=== PATIENT | male | born 1955 | race Hispanic/Latino ===

== ENCOUNTER 2018-05-18 13:56 | Inpatient (IN) | payer SELFPAY ==
[2018-05-18 15:09] LABS: #Basophils 0.1 thou/uL (0.0-0.2); #Eosinphils 0.4 thou/uL (0.0-0.7); #Lymphocytes 1.2 thou/uL (1.20-3.40); #Monocytes 0.6 thou/uL (0.11-0.59); #Neutrophils 5.4 thou/uL (1.40-6.50); %Basophils 0.9 % (0.0-1.0); %Eosinophils 5.8 % (0.0-10.0); %Lymphocytes 15.3 % (21.0-51.0); %Monocytes 7.5 % (0.0-10.0); %Neutrophils 70.4 % (42.0-75.0); Hemoglobin 11.8 g/dL (14.0-18.0); Mean Corpuscular HGB CONC 32.9 g/dL (32.0-36.0); Mean Corpuscular Hemoglobin 31.4 pg (27.0-31.0); Mean Corpuscular Volume 95.4 fL (78.0-98.0); Mean Platelet Volume 8.1 fL (7.4-10.4); Platelet Count 255 thou/uL (130-400); RBC Distribution Width 11.9 % (11.5-14.5); Red Blood Cell (RBC) Count 3.76 mill/uL (4.70-6.10); White Blood Cell (WBC) Count 7.6 thou/uL (4.8-10.8)
[2018-05-18 15:31] LABS: ALT (SGPT) 7 U/L (8-55); AST (SGOT) 7 U/L (5-34); Alkaline Phosphatase 131 U/L (40-150); Anion Gap 19 mmol/L (10-20); BUN (Urea Nitrogen) 81 mg/dL (8.4-25.7); Bilirubin, Total 0.6 mg/dL (0.2-1.2); Calc. Creatinine Clearance 0 mL/min (70-130); Calcium 8.6 mg/dL (7.8-10.44); Carbon Dioxide 17 mmol/L (23-31); Chloride 109 mmol/L (98-107); Estimated GFR-MDRD 5; Globulin 3.8 g/dL (2.4-3.5); Glucose 101 mg/dL (80-115); Potassium 5.4 mmol/L (3.5-5.1); Protein, Total 7.8 g/dL (5.8-8.1); Sodium 140 mmol/L (136-145)
--- NOTE | 2018-05-18 18:46 | RAD ---
AP VIEW CHEST: 05/18/18 HISTORY: Respiratory distress. Chest pain. AP view chest is obtained on 05/18/18. AP view chest demonstrates cardiomegaly seen. Pulmonary vascular congestion is seen. A small left jimmy ed pleural effusion is seen. No evidence of pneumothorax seen. IMPRESSION: Cardiomegaly and small left sided pleural effusion. POS: [facility]
--- NOTE | 2018-05-19 01:06 | HP ---
CHIEF COMPLAINT: Patient known to have end-stage renal disease in need of dialysis, visiting from [place]. HISTORY OF PRESENT ILLNESS AND REVIEW OF SYSTEMS: Mr. Power is a pleasant 62-year-old Turkmen-speaking male who is visiting here from [place]. The patient states he was diagnosed with end-stage renal disease requiring dialysis while living in [place]. He is a [place] who worked here for many years. However, had a work related injury in his right foot, and due to diabetes, had poor healing of the small toe requiring amputation. Due to the amputation, he was no longer able to continue working and decided to return to [place]. The patient states he still is an active [place] resident and is now returning to the [place] as his health has deteriorated further with the end-stage renal disease and need for hemodialysis. The patient is seeking to retire here in the [facility] and seeking to establish care. He feels well and is without any major complaints. He does report mild abdominal distention but denies having any pain. He states he usually has dialysis twice a week and last had it on Sunday, May 13, 2018. He has not had any recent fevers, chills, or sweats. Reports having a normal appetite. Denies any nausea or vomiting. Has not had any changes with his stools. Denies any urinary symptoms. Denies having any chest pain, palpitations, or shortness of breath. No headaches or dizziness. All other review of systems is negative. PAST MEDICAL HISTORY: 1. Diabetes. 2. Hypertension. 3. End-stage renal disease. PAST SURGICAL HISTORY: 1. Port in right neck. 2. Amputation of right fifth toe. SOCIAL HISTORY: Denies any tobacco use, alcohol use, or illicit drug use. Currently staying with family here in [place], [place]. Fully independent and mobilizes without any difficulties. ALLERGIES: NO KNOWN DRUG ALLERGIES. CURRENT MEDICATIONS: 1. Amlodipine 5 mg p.o. b.i.d. 2. Hydralazine 25 mg p.o. daily. PHYSICAL EXAMINATION: GENERAL: Patient is well developed, well nourished, in no acute distress. VITAL SIGNS: Temperature 98.3, pulse 76, respirations 20, O2 sat 97% on room air, and blood pressure 188/93. HEENT: Normocephalic and atraumatic. Pupils are equal, round, and reactive to light. Sclerae are without icterus. Oropharynx is clear. NECK: Supple without lymphadenopathy. LUNGS: Clear to auscultation bilaterally, without wheezes, rales, or rhonchi. CARDIOVASCULAR: Regular rate and rhythm, without audible murmurs, rubs, or gallops. ABDOMEN: Soft, nontender. No tense distention. Normoactive bowel sounds present. No guarding or rigidity. EXTREMITIES: No clubbing, cyanosis, or edema. NEUROLOGIC: Alert and oriented x3. SKIN: Without rash or jaundice. LABORATORY DATA: White blood count 7.6, hemoglobin 11.8, hematocrit 35.8, and platelets 255. Sodium 140, potassium 5.4, chloride 109, BUN 81, creatinine 10.36, eGFR 5, glucose 166, calcium 8.6. Total bilirubin 0.6, AST 7, ALT 7, alkaline phosphatase 131, serum total protein 7.8, albumin 4.0, and globulin . IMAGING DATA: Chest x-ray done May 18, 2018. Cardiomegaly and small left-sided pleural effusion. IMPRESSION AND PLAN: Mr. Power is being admitted for medical management of the following. 1. End-stage renal disease. Patient scheduled by Dr. Valdez for dialysis tomorrow morning. He will need to establish care as an outpatient and it appears Case Management has been consulted. We will update status with regard to him being a [place] resident rather than a non-documented immigrant. 2. Hypertension. Resume home medications. Monitor blood pressure. 3. Diabetes. Patient states he does not take any medications for this and it is managed with insulin given at the time of his dialysis. Monitor glucose. 4. Gastrointestinal prophylaxis. 5. Venous thromboembolism prophylaxis with mechanical SCDs. Patient's case to be discussed with Dr. Lieberman for further recommendations. Job ID: [id number]
--- NOTE | 2018-05-19 02:10 | CON ---
DATE OF CONSULTATION: 05/18/2018 HISTORY OF PRESENT ILLNESS: Mr. Power is a 62-year-old male who was initiated dialysis in [place] 7 months ago. He reported in today here since he has not had dialysis for the last several days. Due to his insurance status, he could not avail of an outpatient dialysis. We are being consulted for his maintenance hemodialysis. I evaluated the patient. I feel that we can wait until tomorrow for his next dialysis session. His potassium is acceptable and the patient was not in volume overload. REVIEW OF SYSTEMS: No chest pain or shortness of breath. No nausea. No vomiting. No diarrhea. No constipation. No productive cough. No fever or chills. No diarrhea. No syncopal episode. No fever or chills. Appetite and energy level, fair. No joint pain. No hematochezia. No melena. No hematemesis. MEDICATIONS: 1. Amlodipine 10 mg tablet once a day. 2. Hydralazine 25 mg tablet b.i.d. PAST MEDICAL HISTORY: Type 2 diabetes mellitus, ESRD from diabetic nephropathy, and hypertension. PAST SURGICAL HISTORY: Status post right foot surgery. SOCIAL HISTORY: The patient is , had 7 children, lives in the [place] area. He used to work in [employer]. Currently, no smoking, no alcohol intake. Denies any blood transfusion. No other drug abuse. Education, primary grade. FAMILY HISTORY: Positive family history of type 2 diabetes mellitus. No ESRD. ALLERGIES: NONE. TRAUMA: None. IMMUNIZATION: Up-to-date. HOSPITALIZATIONS: Please see past medical history. PHYSICAL EXAMINATION: VITAL SIGNS: Blood pressure 180/94, heart rate 70. GENERAL: Awake, alert, comfortable, not in overt distress. SKIN: Adequate turgor. HEENT: He has pinkish conjunctivae. Anicteric sclerae. No neck mass. No carotid bruits. No JVD. CHEST: No deformities. He has a right IJ dialysis catheter. LUNGS: Clear breath sounds. HEART: Normal sinus rhythm. No murmurs, gallops, or rubs. ABDOMEN: Globular, soft, nontender. No masses. EXTREMITIES: No edema, status post toe amputation right foot. LABORATORY DATA: On 05/18/2018; sodium 140, potassium 5.4, chloride 109, carbon dioxide 17, BUN 81, creatinine 10.36, and calcium 8.6. AST 7, ALT 7. Albumin 4. White count 7.6, hemoglobin 11.8, and hematocrit 35.8. Chest x-ray shows increased lung markings with a small left-sided pleural effusion. ASSESSMENT AND PLAN: 1. End-stage renal disease from diabetic nephropathy - we will schedule for hemodialysis in a.m. We will do a 4-hour hemodialysis and place him on a 3 times a week dialysis schedule. We will also consult briefcase sewer for outpatient dialysis placement. 2. Hypertension. Continue current BP medications. We will be rechecking phosphorus and intact PTH with this patient tomorrow. Overall, I agree with current management. Job ID: [id number]
[2018-05-19 05:25] LABS: #Basophils 0.1 thou/uL (0.0-0.2); #Eosinphils 0.4 thou/uL (0.0-0.7); #Lymphocytes 1.1 thou/uL (1.20-3.40); #Monocytes 0.7 thou/uL (0.11-0.59); #Neutrophils 6.5 thou/uL (1.40-6.50); %Basophils 0.8 % (0.0-1.0); %Lymphocytes 12.2 % (21.0-51.0); %Monocytes 7.8 % (0.0-10.0); %Neutrophils 74.3 % (42.0-75.0); Hemoglobin 11.5 g/dL (14.0-18.0); Mean Corpuscular HGB CONC 33.5 g/dL (32.0-36.0); Mean Corpuscular Hemoglobin 31.8 pg (27.0-31.0); Mean Corpuscular Volume 94.9 fL (78.0-98.0); Mean Platelet Volume 8.3 fL (7.4-10.4); Platelet Count 232 thou/uL (130-400); RBC Distribution Width 11.9 % (11.5-14.5); Red Blood Cell (RBC) Count 3.61 mill/uL (4.70-6.10); White Blood Cell (WBC) Count 8.7 thou/uL (4.8-10.8)
[2018-05-19 05:45] LABS: Anion Gap 22 mmol/L (10-20); BUN (Urea Nitrogen) 85 mg/dL (8.4-25.7); Calc. Creatinine Clearance 8 mL/min (70-130); Calcium 8.4 mg/dL (7.8-10.44); Carbon Dioxide 15 mmol/L (23-31); Chloride 109 mmol/L (98-107); Estimated GFR-MDRD 5; Glucose 80 mg/dL (80-115); Phosphorus 7.8 mg/dL (2.3-4.7); Potassium 5.5 mmol/L (3.5-5.1); Sodium 140 mmol/L (136-145)
[2018-05-19 06:03] LABS: HBSAB Concentration 0.44 mIU/mL; HBSAg Index 0.21 S/CO (0-0.99); Hep B Core Total Ab Non-Reactive (NonReactive); Hep B Core Total Index 0.11 S/CO (0-0.79); Hep B Surf AB Non-Reactive (NonReactive); Hep B Surf Ag Non-Reactive S/CO (NonReactive); Hep C IgG Ab Non-Reactive (NonReactive); Hep C Index 0.07 S/CO (0-0.79)
[2018-05-19] MEDS ORDERED: Ondansetron PF 4 MG/2 ML Vial IVP PRN (07:36)
[2018-05-19] MEDS ORDERED: Dextrose 5% in Water 1,000 ML IV PRN (07:36)
[2018-05-19] MEDS ORDERED: Acetaminophen 325 MG TAB PO PRN (07:36)
[2018-05-19] MEDS ORDERED: Calcium Carbonate 500 MG ChewTAB PO PRN (07:36)
[2018-05-19] MEDS ORDERED: Senokot S 8.6-50 MG TAB PO PRN (07:36)
[2018-05-19] MEDS ORDERED: Dextrose 50% Abboject 50 ML SYRINGE SLOW IVP PRN (07:36)
[2018-05-19] MEDS ORDERED: Insulin Regular 300 UNITS/3 ML VIAL SC PRN ×2 (07:36)
[2018-05-19] MEDS ORDERED: Ondansetron ODT 4 MG TAB PO PRN (07:36)
[2018-05-19 08:21] LABS: Hemoglobin A1c 5.3 % (4.0-6.0)
--- NOTE | 2018-05-19 08:47 | PRG ---
DATE OF SERVICE: 05/19/2018 SUBJECTIVE: Mr. Jannet Hebert is a 62-year-old male with ESRD from presumed diabetic nephropathy and was admitted for initiation of his dialysis. He has been receiving dialysis at [place]. He came back to this country and would like to establish dialysis treatment and the patient is scheduled for hemodialysis today. I have scheduled him for 3-1/2 hours. No new complaints. No chest pain or shortness of breath. OBJECTIVE: VITAL SIGNS: Blood pressure is 176/93, heart rate 75, respiratory rate 19, temperature 99.5, and pulse ox 93%. GENERAL: Noted to be awake, alert, supine, comfortable, not in distress. SKIN: Adequate turgor. HEENT: He has pinkish conjunctivae. Anicteric sclerae. NECK: No neck mass. No carotid bruits. No JVD. CHEST: No deformities. LUNGS: Clear breath sounds. HEART: Normal sinus rhythm. No murmur. No gallops. No rubs. ABDOMEN: Globular, soft, nontender. No masses. EXTREMITIES: No edema. No deformities. MEDICATIONS: Medications of May 19, 2018, was reviewed. LABORATORY DATA: laboratories of May 19, 2018, sodium 140, potassium 5.5, chloride 109, carbon dioxide 15, BUN 85, creatinine 10.41, and phosphorus 7.8. PTH 455.8. ASSESSMENT AND PLAN: 1. End-stage renal disease - we will resume hemodialysis. I will schedule him for 3-1/2 hours on Wednesday, , and Wednesday. Fluid removal as tolerated by the patient. 2. Hypertension. We will resume back his BP medications. Start hydralazine 25 mg tablet t.i.d. and amlodipine 10 mg tablet once a day. 3. Hyperphosphatemia. Renvela 800 mg one tablet t.i.d. with meals. 4. Secondary hyperparathyroidism, calcitriol 0.25 mcg tab daily. Awaiting dialysis placement. Job ID: [id number]
[2018-05-19] MEDS: Sodium Bicarbonate Tab 325 MG TAB PO SCH ×3 (09:55→21:25)
[2018-05-19] MEDS: Calcitriol 0.25 MCG CAP PO SCH (09:55)
[2018-05-19] MEDS: Amlodipine 10 MG TAB PO SCH (09:56)
[2018-05-19] MEDS: hydrALAZINE 25 MG TAB PO SCH ×3 (09:57→21:25)
[2018-05-19] MEDS: Heparin 5,000 UNITS/ML VIAL SC SCH ×2 (09:58→21:25)
[2018-05-19] MEDS ORDERED: Heparin 1,000 UNITS/ML VIAL ONE (11:11)
[2018-05-19] MEDS: Sevelamer Carbonate 800 MG TAB PO SCH ×2 (12:20→18:07)
--- NOTE | 2018-05-19 14:48 | PDOC.PN ---
- Subjective Encounter Start Date: 05/19/18 Encounter Start Time: 11:00 Patient seen and examined for volume overload/Hyperkalemia. No CP/Palpitations. No other complaints. No overnight events - Objective Resuscitation Status - Order Detail: 05/19/18 07:36 Resuscitation Status Routine Resuscitation Status: FULL: Full Resuscitation MAR Reviewed: Yes Vital Signs & Weight: Vital Signs (12 hours) Temp Pulse Resp BP Pulse Ox 05/19/18 11:10 98.1 F 71 14 166/80 H 95 05/19/18 07:48 98.2 F 74 16 168/82 H 95 05/19/18 03:07 99.5 F 75 19 176/93 H 93 L Weight Weight 164 lb 9 oz Result Diagrams: 05/19/18 04:28 05/19/18 04:28 Additional Labs: Accuchecks 05/19/18 05/19/18 05/18/18 10:28 05:41 20:57 POC Glucose 76 83 166 H Radiology Reviewed by me: Yes (CXR - Small left pleural eff) EKG Reviewed by me: Yes (Tele SR) Phys Exam - Physical Examination Constitutional: NAD Neck: no JVD Respiratory: no wheezing, no rhonchi dec AE at bases, Symmetrical Cardiovascular: RRR, no rub no heaves/pulsations Gastrointestinal: soft, non-tender, no distention, positive bowel sounds Musculoskeletal: edema present Neurological: non-focal, normal sensation, moves all 4 limbs (1+) Psychiatric: normal affect, A&O x 3 Dx/Plan (1) Volume overload Code(s): E87.70 - FLUID OVERLOAD, UNSPECIFIED Status: Acute Comment: with pleural effusion due to missed hemodialysis (2) Hyperkalemia Code(s): E87.5 - HYPERKALEMIA Status: Acute (3) ESRD (end stage renal disease) on dialysis Code(s): N18.6 - END STAGE RENAL DISEASE; Z99.2 - DEPENDENCE ON RENAL DIALYSIS Status: Acute Comment: with secondary hyperparathyroidism (4) HTN (hypertension) Code(s): I10 - ESSENTIAL (PRIMARY) HYPERTENSION Status: Chronic (5) DM2 (diabetes mellitus, type 2) Status: Acute Qualifiers: Chronic kidney disease stage: on chronic dialysis (6) Metabolic acidosis Code(s): E87.2 - ACIDOSIS Status: Acute - Plan cont current plan of care, plan discussed w/ family, DVT proph w/SCDs Add Sodium bicarb -: AM labs -: Outpt dialysis setup -: Cont Hydralazine and Amlodipine -: DC Insulin sliding scale Review of Systems - Review of Systems Respiratory: negative: Cough, Dry, Shortness of Breath, Hemoptysis, SOB with Excertion, Pleuritic Pain, Sputum, Wheezing Cardiovascular: edema. negative: chest pain, palpitations, orthopnea, paroxysmal nocturnal dyspnea, light headedness, other Gastrointestinal: negative: Nausea, Vomiting, Abdominal Pain, Diarrhea, Constipation, Melena, Hematochezia, Other - Medications/Allergies Allergies/Adverse Reactions: Allergies Allergy/AdvReac Type Severity Reaction Status Date / Time No Known Drug Allergies Allergy Verified 05/18/18 20:23 Medications: Current Medications Acetaminophen (Tylenol) 650 mg PO Q4H PRN PRN Reason: Headache/Fever/Mild Pain (1-3) Amlodipine Besylate (Norvasc) 10 mg PO DAILY [facility] Last Admin: 05/19/18 09:56 Dose: 10 mg Calcitriol (Rocaltrol) 0.25 mcg PO DAILY [facility] Last Admin: 05/19/18 09:55 Dose: 0.25 mcg Calcium Carbonate (Tums) 1,000 mg PO Q4H PRN PRN Reason: Heartburn or Indigestion Dextrose/Water (Dextrose 50%) 25 gm SLOW IVP PRN PRN PRN Reason: Hypoglycemia Glucagon (Glucagon) 1 mg IM PRN PRN PRN Reason: Hypoglycemia Heparin Sodium (Porcine) (Heparin) 5,000 units SC BID [facility] Last Admin: 05/19/18 09:58 Dose: 5,000 units Hydralazine HCl (Apresoline) 25 mg PO TID [facility] Last Admin: 05/19/18 09:57 Dose: 25 mg Dextrose/Water (D5w) 1,000 mls @ 0 mls/hr IV .Q0M PRN PRN Reason: Hypoglycemia Ondansetron HCl (Zofran Odt) 4 mg PO Q6H PRN PRN Reason: Nausea/Vomiting Ondansetron HCl (Zofran) 4 mg IVP Q6H PRN PRN Reason: Nausea/Vomiting Senna/Docusate Sodium (Senokot S) 2 tab PO BID PRN PRN Reason: Constipation Sevelamer Carbonate (Renvela) 800 mg PO TID[facility] Last Admin: 05/19/18 12:20 Dose: 800 mg Sodium Bicarbonate (Bicarbonate, Sodium) 650 mg PO TID [facility] Last Admin: 05/19/18 09:55 Dose: 650 mg Sodium Chloride (Flush - Normal Saline) 10 ml IVF PRN PRN PRN Reason: Saline Flush Last Admin: 05/19/18 09:59 Dose: 10 ml
[2018-05-20 06:03] LABS: #Basophils 0.1 thou/uL (0.0-0.2); #Eosinphils 0.4 thou/uL (0.0-0.7); #Lymphocytes 1.5 thou/uL (1.20-3.40); #Monocytes 0.8 thou/uL (0.11-0.59); #Neutrophils 5.1 thou/uL (1.40-6.50); %Basophils 0.9 % (0.0-1.0); %Lymphocytes 18.6 % (21.0-51.0); %Monocytes 10.4 % (0.0-10.0); %Neutrophils 65.2 % (42.0-75.0); Hemoglobin 11.7 g/dL (14.0-18.0); Mean Corpuscular HGB CONC 32.2 g/dL (32.0-36.0); Mean Corpuscular Hemoglobin 30.4 pg (27.0-31.0); Mean Corpuscular Volume 94.4 fL (78.0-98.0); Mean Platelet Volume 8.4 fL (7.4-10.4); Platelet Count 231 thou/uL (130-400); RBC Distribution Width 11.9 % (11.5-14.5); Red Blood Cell (RBC) Count 3.84 mill/uL (4.70-6.10); White Blood Cell (WBC) Count 7.8 thou/uL (4.8-10.8)
[2018-05-20 06:30] LABS: Anion Gap 15 mmol/L (10-20); BUN (Urea Nitrogen) 41 mg/dL (8.4-25.7); Calc. Creatinine Clearance 12 mL/min (70-130); Calcium 8.7 mg/dL (7.8-10.44); Carbon Dioxide 25 mmol/L (23-31); Chloride 100 mmol/L (98-107); Estimated GFR-MDRD 9; Glucose 71 mg/dL (80-115); Potassium 4.7 mmol/L (3.5-5.1); Sodium 135 mmol/L (136-145)
[2018-05-20] MEDS: Amlodipine 10 MG TAB PO SCH (09:10)
[2018-05-20] MEDS: hydrALAZINE 25 MG TAB PO SCH ×3 (09:10→21:15)
--- NOTE | 2018-05-20 09:53 | PRG ---
DATE OF SERVICE: 05/20/2018 SUBJECTIVE: Mr. Jannet Hebert is a 62-year-old male, who has ESRD, has been placed on maintenance hemodialysis. He was doing his dialysis in [place] and has no placement in this country. We did dialyze the patient yesterday and we did find the catheter was a temporary one. I have consulted Surgery for placement of a cuffed hemodialysis catheter as well as an AV fistula. The patient might be interested in doing PD. For that reason, I have consulted the dialysis nurses for an option visit (? Peritoneal Dialysis) No other complaints today. No chest pain. No shortness of breath. OBJECTIVE: VITAL SIGNS: Blood pressure 183/84, heart rate 67, respiratory rate 20, temperature 97.8, and pulse ox 95%. GENERAL: The patient is awake, supine, comfortable, not in overt distress. SKIN: Adequate turgor. HEENT: He has pinkish conjunctivae. Anicteric sclerae. NECK: No neck mass. No carotid bruits. No JVD. CHEST: No deformities. LUNGS: Clear breath sounds. No wheezing. No crackles. HEART: Normal sinus rhythm. No murmur. No gallops. No rubs. ABDOMEN: Globular, soft, and nontender. No masses. EXTREMITIES: No edema. MEDICATIONS: Medications of May 20, 2018 were reviewed. LABORATORY DATA: Laboratories of May 20, 2018; white count 7.8, hemoglobin 11.7. Sodium 135, potassium 4.7, chloride 100, carbon dioxide 25, BUN 41, creatinine 6.44, glucose 71, and calcium 8.7. ASSESSMENT AND PLAN: 1. End-stage renal disease, continuing hemodialysis regimen with this patient. We will change dialysis catheter. I placed him on a 3 times a week hemodialysis schedule. 2. Hyperphosphatemia - On Renvela. 3. Secondary hyperparathyroidism - Calcitriol has been initiated. 4. Metabolic acidosis, much improved. We will discontinue sodium bicarbonate replacement. Job ID: [id number] [facility]
[2018-05-20] MEDS: Heparin 5,000 UNITS/ML VIAL SC SCH ×2 (10:33→21:15)
[2018-05-20] MEDS: Sevelamer Carbonate 800 MG TAB PO SCH ×3 (10:33→16:34)
[2018-05-20] MEDS: Calcitriol 0.25 MCG CAP PO SCH (10:33)
[2018-05-20] MEDS ORDERED: CEFAZOLIN 2 GM in Premix Bag 1 BAG IVPB SCH (10:45)
[2018-05-20] MEDS ORDERED: CEFAZOLIN/Water 2 GM/20 ML SYRINGE SLOW IVP SCH (10:45)
--- NOTE | 2018-05-20 11:30 | HP ---
HISTORY OF PRESENT ILLNESS: Dereje Hebert is a 62-year-old Czech speaking only male, who has suffered renal failure and had a non-cuffed, non-tunneled hemodialysis catheter placed in right internal jugular vein in [place] in January. He has been using that for dialysis twice a week. He presents this hospitalization after moving to [facility] to be with family with hyperkalemia. He presented to the emergency room on 05/18/2018. I am consulting on 05/20/2018 for a cuffed hemodialysis catheter. He has a history of diabetes and hypertension. The patient has had IV blood draws in both antecubital areas and has a left hand IV. PAST MEDICAL HISTORY: Diabetes mellitus; hypertension; end-stage renal disease, on dialysis since January 2018, dialysis was done in [place], none locally. PAST SURGICAL HISTORY: Right IJ dialysis catheter, non-cuffed, non-tunneled, not-sutured. Amputation of right fifth toe. SOCIAL HISTORY: Tobacco, none. Alcohol use and drug use, none. The patient is independently ambulatory. He lives with his family. ALLERGIES: NONE. MEDICATIONS: Amlodipine and hydralazine. REVIEW OF SYSTEMS: Noncontributory. PHYSICAL EXAMINATION: VITAL SIGNS: Height 5 feet 6 inches, 155 pounds, 25 of BMI, temperature 97.8 degrees, heart rate 67, and blood pressure 183/84. HEAD, EARS, EYES, NOSE, AND THROAT: Unremarkable. LUNGS: Clear to auscultation. CARDIAC: Regular rate and rhythm without murmur or gallop. ABDOMEN: Soft and nontender. EXTREMITIES: Unremarkable. No ankle edema. Palpable radial pulses. Bandages in bilateral antecubital indicative of recent blood draws. IV Hep-Lock in left hand. Right IJ dialysis catheter, non-cuffed and non-tunneled, LABORATORY DATA: Sodium 135, potassium 4.7, BUN 41, creatinine 6.4, GFR 9, and glucose 76. Hemoglobin A1c 5.3. PTH intact at 455. IMAGING STUDIES: Chest x-ray; cardiomegaly, small left pleural effusion. ASSESSMENT AND PLAN: 1. End-stage renal disease, in need of dialysis access. He has had IV access and blood draws in both antecubital area and I have indicated that he should not let anyone do this again. He has a Hep-Lock in his left hand. Fortunately, he has a non-cuffed hemodialysis catheter in right IJ. We will remove this hemodialysis catheter immediately. We will plan placement of a cuffed tunneled hemodialysis catheter, possible central line, and left and right arm AV fistula, pending vein mapping, which has been ordered stat. We will plan this today. He is n.p.o. Risks and benefits were explained, he consents. 2. Hypertension. 3. Diabetes. 4. Hyperkalemia, resolved with dialysis. Job ID: [id number]
[2018-05-20] MEDS ORDERED: Heparin 10,000 UNITS/1 ML VIAL ONE (12:33)
[2018-05-20] MEDS ORDERED: Bupivacaine HCl 0.5%/Epinephrine 1:200,000/PF 30 ml Vial ONE (12:33)
[2018-05-20] MEDS ORDERED: Sodium Chloride 0.9% 10 ML ONE (12:33)
[2018-05-20] MEDS ORDERED: Heparin 5,000 UNITS/ML VIAL ONE (12:33)
[2018-05-20] MEDS ORDERED: Lidocaine 2% PF 5 ML VIAL ONE (12:33)
[2018-05-20] MEDS ORDERED: Fentanyl 100 MCG/2 ML VIAL ONE (12:49)
--- NOTE | 2018-05-20 13:43 | ULT ---
BILATERAL UPPER EXTREMITY VEIN MAPPING: Date: 05/20/18 HISTORY: End-stage renal disease. Evaluation for dialysis fistula. FINDINGS: RIGHT UPPER EXTREMITY CEPHALIC VEIN Proximal Arm: 3.2 mm Mid Arm: 2.6 mm Distal Arm: 1.0 mm Antecubital Fossa: 2.4 mm Proximal Forearm: 1.3 mm Mid Forearm: 0.6 mm Distal Forearm: 1.4 mm BASILIC VEIN Proximal Arm: 1.2 mm Mid Arm: 1.6 mm Distal Arm: 1.4 mm Antecubital Fossa: 1.1 mm Proximal Forearm: 1.1 mm Mid Forearm: 1.6 mm Distal Forearm: 1.5 mm LEFT UPPER EXTREMITY CEPHALIC VEIN Proximal Arm: 4.0 mm Mid Arm: 2.2 mm Distal Arm: 2.2 mm Antecubital Fossa: 2.2 mm Proximal Forearm: 1.4 mm Mid Forearm: 0.9 mm Distal Forearm: 0.5 mm BASILIC VEIN Proximal Arm: 2.0 mm Mid Arm: 1.9 mm Distal Arm: 2.1 mm Antecubital Fossa: 3.0 mm Proximal Forearm: 2.1 mm Mid Forearm: 1.7 mm Distal Forearm: 1.8 mm RIGHT BRACHIAL ARTERY: 5.0 mm RIGHT RADIAL ARTERY: 2.5 mm RIGHT ULNAR ARTERY: 1.9 mm LEFT BRACHIAL ARTERY: 5.1 mm LEFT RADIAL ARTERY: 2.3 mm LEFT ULNAR ARTERY: 2.1 mm IMPRESSION: Vein mapping as discussed above. POS: [facility]
[2018-05-20] MEDS ORDERED: traMADol HCl 50 MG TAB PO PRN ×2 (13:45)
[2018-05-20] MEDS ORDERED: ePHEDrine/0.9% NaCl/PF SYRINGE 50 mg/10 ml ONE (14:25)
[2018-05-20] MEDS ORDERED: Protamine Sulfate 50 MG/5 ML VIAL ONE (14:35)
--- NOTE | 2018-05-20 15:43 | RAD ---
PORTABLE CHEST: Date: 05/20/18 PROVIDED CLINICAL HISTORY: Central line placement. FINDINGS: Comparison made with the study dated 05/18/18. Interval placement of left-sided dialysis catheter, the tips of which overlie expected locations of r ight atrium. There is persistent left basilar pleural parenchymal opacity. There is development of bl unting of the right costophrenic angle. There is no evidence for pneumothorax. IMPRESSION: 1. Development of right pleural fluid. 2. Persistent left basilar pleural parenchymal opacity. 3. No evidence for pneumothorax. POS: [facility]
[2018-05-20] MEDS ORDERED: ePHEDrine 50 MG/ML VIAL ONE (15:57)
[2018-05-20] MEDS ORDERED: PHENYLEPHRINE-NS 100 MCG/ML 10 ML SYRINGE ONE (15:57)
[2018-05-20] MEDS ORDERED: Lidocaine 1% PF 5 ML VIAL ONE (15:57)
[2018-05-20] MEDS ORDERED: Heparin 10,000 UNITS/ 10 ML VIAL ONE (15:57)
[2018-05-20] MEDS ORDERED: PROPOFOL 200 MG/20 ML VIAL ONE (15:57)
[2018-05-20] MEDS ORDERED: Ondansetron PF 4 MG/2 ML Vial ONE (15:57)
[2018-05-20] MEDS: Acetaminophen 500 MG TAB PO PRN (16:33)
--- NOTE | 2018-05-20 21:06 | OP ---
DATE OF PROCEDURE: 05/20/2018 PREOPERATIVE DIAGNOSIS: End-stage renal disease, non-cuffed non-tunneled hemodialysis catheter, right IJ removed, has been present for more than 2 months. POSTOPERATIVE DIAGNOSIS: End-stage renal disease, non-cuffed non-tunneled hemodialysis catheter, right IJ removed, has been present for more than 2 months. Occluded right internal jugular vein. PROCEDURE PERFORMED: Failed attempted placement of right internal jugular vein for successful left internal jugular vein cuffed tunneled hemodialysis catheter, pre-curved AngioDynamics catheter. Fluoroscopy and ultrasound used. Left arm primary fistula inflow proximal radial artery, outflow cephalic vein only, excellent Doppler signal calibrated to 3.5 mm coronary dilator. ANESTHESIA: General, local of 0.5% Marcaine with epinephrine. DESCRIPTION OF PROCEDURE: The patient was taken to the operating room, where under general anesthesia, neck, chest, and left upper extremity were prepared with ChloraPrep and draped in routine fashion. Ultrasound was used to cannulate the right internal jugular vein, but the J-wire would not thread. After some persistence of the straight end, it did thread and visualized fluoroscopically what appeared to be right superior vena cava. Skin was incised and enlarged sharply, and a dilator placed under fluoroscopic visualization, and the J-wire removed, and there was no blood return from the dilator. Thus, this was removed and right internal jugular vein outflow was considered to be occluded. Under ultrasound guidance, the left internal jugular vein was cannulated with a trocar catheter, J-wire threaded, trocar catheter was removed. Skin was incised and enlarged sharply. Stab incision was made over the left chest, and pre-curved AngioDynamics cuffed-tunneled hemodialysis catheter tunneled between 2 incisions, placed the fabric cuff beneath the skin exit site. Catheter was secured with 2 interrupted sutures of 3-0 nylon, and sterile dressing was applied. Small and medium size dilators were placed with J-wire, and the internal jugular vein was removed. Dilator and Peel-Away sheath were placed with J-wire in the superior vena cava under fluoroscopic visualization. J-wire and dilator were removed. Catheter was placed with Peel-Away sheath. Peel-Away sheath was removed. Fluoroscopically, catheter was noted to be in good position. The platysma was approximated with 4-0 Monocryl, skin with subdermal 4-0 Monocryl, and [place] glue. Sterile dressings applied. Each port aspirated blood and flushed with saline solution and heparinized saline solution with 1000 units of heparin per mL indicating volume of the port. Incision was made in the proximal volar forearm. The cephalic vein at the wrist was present, but seemed to be small and became smaller more proximally. The patient had an antecubital IV, blood drawn prior to this procedure. Nonetheless, incision was made longitudinally below the antecubital fossa and skin and subcutaneous tissue and the antecubital vein dissected free. Perforating branch dissected free, and branches were divided between 4-0 silk ties and clips, and then the patient was given 6000 units of heparin intravenously. The perforating branch antecubital vein divided, spatulated over branch points and interrogated with coronary dilators. It was then flushed with heparinized saline solution. Proximal radial artery and brachial ulnar artery dissected free and controlled with vascular clamps. Longitudinal arteriotomy was made in the proximal radial artery elongated with Dugan scissors for a 2.5 to 3 cm anastomosis. Once this was completed, the vein was appropriately spatulated end vein to side proximal radial artery anastomosis created with continuous suture of 6-0 Prolene. After completing the anastomosis, vascular flow was re-established, released with vascular clamps. There was good Doppler signal in the cephalic vein outflow. There was outflow only in the cephalic vein. Retrograde antecubital vein was not preserved. Good hemostasis noted, and subcutaneous tissue was approximated with 3-0 Monocryl, skin with subdermal 4-0 Monocryl, and [place] glue applied. The patient tolerated the procedure well. Job ID: [id number]
--- NOTE | 2018-05-20 21:30 | PDOC.PN ---
- Subjective Encounter Start Date: 05/20/18 Encounter Start Time: 10:15 Patient seen and examined for Hyperkalemia/Missed dialysis. Feeling better. No new complaints. No overnight events - Objective Resuscitation Status - Order Detail: 05/19/18 07:36 Resuscitation Status Routine Resuscitation Status: FULL: Full Resuscitation MAR Reviewed: Yes Vital Signs & Weight: Vital Signs (12 hours) Temp Pulse Resp BP BP Pulse Ox 05/20/18 21:15 79 150/81 H 05/20/18 19:58 97.5 F L 79 16 150/81 H 94 L 05/20/18 16:33 75 167/68 H Weight Weight 155 lb 3.2 oz I&O: 05/19/18 05/20/18 05/21/18 06:59 06:59 06:59 Intake Total 750 100 Output Total 3900 Balance -3150 100 Result Diagrams: 05/20/18 04:31 05/20/18 04:31 EKG Reviewed by me: Yes (Tele SR) Phys Exam - Physical Examination Constitutional: NAD Respiratory: no wheezing, no rhonchi Cardiovascular: RRR, no rub Gastrointestinal: soft, non-tender, positive bowel sounds Musculoskeletal: no edema Neurological: moves all 4 limbs Dx/Plan (1) Volume overload Code(s): E87.70 - FLUID OVERLOAD, UNSPECIFIED Status: Acute Comment: with pleural effusion due to missed hemodialysis (2) Hyperkalemia Code(s): E87.5 - HYPERKALEMIA Status: Acute (3) ESRD (end stage renal disease) on dialysis Code(s): N18.6 - END STAGE RENAL DISEASE; Z99.2 - DEPENDENCE ON RENAL DIALYSIS Status: Acute Comment: with secondary hyperparathyroidism (4) HTN (hypertension) Code(s): I10 - ESSENTIAL (PRIMARY) HYPERTENSION Status: Chronic (5) DM2 (diabetes mellitus, type 2) Status: Chronic Qualifiers: Chronic kidney disease stage: on chronic dialysis (6) Metabolic acidosis Code(s): E87.2 - ACIDOSIS Status: Acute - Plan cont current plan of care, plan discussed w/ family, 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 -: Dialysis per Nephrology -: Cont current meds as below Review of Systems - Review of Systems Cardiovascular: negative: chest pain, palpitations, orthopnea, paroxysmal nocturnal dyspnea, edema, light headedness, other Gastrointestinal: negative: Nausea, Vomiting, Abdominal Pain, Diarrhea, Constipation, Melena, Hematochezia, Other - Medications/Allergies Allergies/Adverse Reactions: Allergies Allergy/AdvReac Type Severity Reaction Status Date / Time No Known Drug Allergies Allergy Verified 05/18/18 20:23 Medications: Current Medications Acetaminophen (Tylenol) 650 mg PO Q4H PRN PRN Reason: Headache/Fever/Mild Pain (1-3) Last Admin: 05/19/18 23:48 Dose: 650 mg Acetaminophen (Tylenol) 1,000 mg PO Q6H PRN PRN Reason: Moderate to Severe Pain (6-10) Last Admin: 05/20/18 16:33 Dose: 1,000 mg Amlodipine Besylate (Norvasc) 10 mg PO DAILY [facility] Last Admin: 05/20/18 09:10 Dose: 10 mg Calcitriol (Rocaltrol) 0.25 mcg PO DAILY [facility] Last Admin: 05/20/18 10:33 Dose: Not Given Calcium Carbonate (Tums) 1,000 mg PO Q4H PRN PRN Reason: Heartburn or Indigestion Dextrose/Water (Dextrose 50%) 25 gm SLOW IVP PRN PRN PRN Reason: Hypoglycemia Glucagon (Glucagon) 1 mg IM PRN PRN PRN Reason: Hypoglycemia Heparin Sodium (Porcine) (Heparin) 5,000 units SC BID [facility] Last Admin: 05/20/18 21:15 Dose: 5,000 units Hydralazine HCl (Apresoline) 25 mg PO TID [facility] Last Admin: 05/20/18 21:15 Dose: 25 mg Dextrose/Water (D5w) 1,000 mls @ 0 mls/hr IV .Q0M PRN PRN Reason: Hypoglycemia Cefazolin Sodium/Dextrose 2 gm (/ Device) 50 mls @ 100 mls/hr IVPB ONCALL-OR [facility] Stop: 05/20/18 23:59 Ondansetron HCl (Zofran Odt) 4 mg PO Q6H PRN PRN Reason: Nausea/Vomiting Ondansetron HCl (Zofran) 4 mg IVP Q6H PRN PRN Reason: Nausea/Vomiting Senna/Docusate Sodium (Senokot S) 2 tab PO BID PRN PRN Reason: Constipation Sevelamer Carbonate (Renvela) 800 mg PO TID-[facility] Last Admin: 05/20/18 16:34 Dose: 800 mg Sodium Chloride (Flush - Normal Saline) 10 ml IVF PRN PRN PRN Reason: Saline Flush Last Admin: 05/19/18 21:26 Dose: 10 ml Tramadol HCl (Ultram) 50 mg PO Q6H PRN PRN Reason: Mild-Moderate Pain (1-5) Tramadol HCl (Ultram) 100 mg PO Q6H PRN PRN Reason: Moderate to Severe Pain (6-10)
[2018-05-21] MEDS: Heparin 5,000 UNITS/ML VIAL SC SCH (09:17)
[2018-05-21] MEDS: Sevelamer Carbonate 800 MG TAB PO SCH ×3 (09:17→18:27)
[2018-05-21] MEDS: Amlodipine 10 MG TAB PO SCH (09:17)
[2018-05-21] MEDS: Acetaminophen 500 MG TAB PO PRN ×2 (09:17→20:28)
[2018-05-21] MEDS: Calcitriol 0.25 MCG CAP PO SCH (09:17)
[2018-05-21] MEDS: hydrALAZINE 25 MG TAB PO SCH ×3 (09:18→20:24)
--- NOTE | 2018-05-21 10:51 | PDOC.PN ---
- Subjective Encounter Start Date: 05/21/18 Encounter Start Time: 09:30 Patient seen and examined for Volume overload/Hyperkalemia. No new complaints. No uremic symptoms. No overnight events - Objective Resuscitation Status - Order Detail: 05/19/18 07:36 Resuscitation Status Routine Resuscitation Status: FULL: Full Resuscitation MAR Reviewed: Yes Vital Signs & Weight: Vital Signs (12 hours) Temp Pulse Resp BP BP Pulse Ox 05/21/18 09:18 77 159/80 H 05/21/18 09:17 77 159/80 H 05/21/18 08:00 94 L 05/21/18 07:53 97.6 F 78 20 159/80 H 94 L 05/21/18 04:10 97.6 F 91 16 148/68 H 92 L 05/21/18 00:09 97.9 F 78 16 124/57 L 92 L Weight Weight 155 lb 1 oz I&O: 05/20/18 05/21/18 05/22/18 06:59 06:59 06:59 Intake Total 750 580 Output Total 3900 Balance -3150 580 Result Diagrams: 05/20/18 04:31 05/20/18 04:31 Phys Exam - Physical Examination Constitutional: NAD Respiratory: no wheezing, no rhonchi Cardiovascular: RRR, no rub Gastrointestinal: soft, non-tender, positive bowel sounds Musculoskeletal: no edema Neurological: moves all 4 limbs Dx/Plan (1) Volume overload Code(s): E87.70 - FLUID OVERLOAD, UNSPECIFIED Status: Acute Comment: with pleural effusion due to missed hemodialysis (2) Hyperkalemia Code(s): E87.5 - HYPERKALEMIA Status: Acute (3) ESRD (end stage renal disease) on dialysis Code(s): N18.6 - END STAGE RENAL DISEASE; Z99.2 - DEPENDENCE ON RENAL DIALYSIS Status: Acute Comment: with secondary hyperparathyroidism (4) HTN (hypertension) Code(s): I10 - ESSENTIAL (PRIMARY) HYPERTENSION Status: Chronic (5) DM2 (diabetes mellitus, type 2) Status: Chronic Qualifiers: Chronic kidney disease stage: on chronic dialysis (6) Metabolic acidosis Code(s): E87.2 - ACIDOSIS Status: Acute - Plan cont current plan of care, plan discussed w/ family, out of bed/ambulate, DVT proph w/SCDs s/p [facility] dialysis access -: Stable for discharge once outpt dialysis arranged -: Cont Amlodipine/Hydralazine -: Cont other meds as below Review of Systems - Review of Systems Constitutional: negative: fever, chills, sweats, weakness, malaise, other Respiratory: negative: Cough, Dry, Shortness of Breath, Hemoptysis, SOB with Excertion, Pleuritic Pain, Sputum, Wheezing Cardiovascular: negative: chest pain, palpitations, orthopnea, paroxysmal nocturnal dyspnea, edema, light headedness, other Gastrointestinal: negative: Nausea, Vomiting, Abdominal Pain, Diarrhea, Constipation, Melena, Hematochezia, Other - Medications/Allergies Allergies/Adverse Reactions: Allergies Allergy/AdvReac Type Severity Reaction Status Date / Time No Known Drug Allergies Allergy Verified 05/18/18 20:23 Medications: Current Medications Acetaminophen (Tylenol) 650 mg PO Q4H PRN PRN Reason: Headache/Fever/Mild Pain (1-3) Last Admin: 05/19/18 23:48 Dose: 650 mg Acetaminophen (Tylenol) 1,000 mg PO Q6H PRN PRN Reason: Moderate to Severe Pain (6-10) Last Admin: 05/21/18 09:17 Dose: 1,000 mg Amlodipine Besylate (Norvasc) 10 mg PO DAILY [facility] Last Admin: 05/21/18 09:17 Dose: 10 mg Calcitriol (Rocaltrol) 0.25 mcg PO DAILY [facility] Last Admin: 05/21/18 09:17 Dose: 0.25 mcg Calcium Carbonate (Tums) 1,000 mg PO Q4H PRN PRN Reason: Heartburn or Indigestion Dextrose/Water (Dextrose 50%) 25 gm SLOW IVP PRN PRN PRN Reason: Hypoglycemia Glucagon (Glucagon) 1 mg IM PRN PRN PRN Reason: Hypoglycemia Heparin Sodium (Porcine) (Heparin) 5,000 units SC BID [facility] Last Admin: 05/21/18 09:17 Dose: 5,000 units Hydralazine HCl (Apresoline) 25 mg PO TID [facility] Last Admin: 05/21/18 09:18 Dose: 25 mg Dextrose/Water (D5w) 1,000 mls @ 0 mls/hr IV .Q0M PRN PRN Reason: Hypoglycemia Ondansetron HCl (Zofran Odt) 4 mg PO Q6H PRN PRN Reason: Nausea/Vomiting Ondansetron HCl (Zofran) 4 mg IVP Q6H PRN PRN Reason: Nausea/Vomiting Senna/Docusate Sodium (Senokot S) 2 tab PO BID PRN PRN Reason: Constipation Sevelamer Carbonate (Renvela) 800 mg PO TID-[facility] Last Admin: 05/21/18 09:17 Dose: 800 mg Sodium Chloride (Flush - Normal Saline) 10 ml IVF PRN PRN PRN Reason: Saline Flush Last Admin: 05/19/18 21:26 Dose: 10 ml Tramadol HCl (Ultram) 50 mg PO Q6H PRN PRN Reason: Mild-Moderate Pain (1-5) Tramadol HCl (Ultram) 100 mg PO Q6H PRN PRN Reason: Moderate to Severe Pain (6-10)
[2018-05-21] MEDS ORDERED: Heparin 1,000 UNITS/ML VIAL ONE (11:11)
[2018-05-22] MEDS: Amlodipine 10 MG TAB PO SCH (09:01)
[2018-05-22] MEDS: Sevelamer Carbonate 800 MG TAB PO SCH ×3 (09:01→17:17)
[2018-05-22] MEDS: hydrALAZINE 25 MG TAB PO SCH ×3 (09:02→20:44)
[2018-05-22] MEDS: Calcitriol 0.25 MCG CAP PO SCH (09:02)
--- NOTE | 2018-05-22 12:29 | PRG ---
DATE OF SERVICE: 05/22/2018 SUBJECTIVE: Mr. Jannet Hebert is a 62-year-old male with ESRD and currently on maintenance hemodialysis. He underwent dialysis on Wednesday without any difficulty. No new complaints today. He has undergone a new dialysis catheter placement as well as a left AV fistula. OBJECTIVE: VITAL SIGNS: Blood pressure 154/76, heart rate 73, respiratory rate 16, temperature 98.1, pulse ox 94%. GENERAL: Awake, alert, comfortable. SKIN: Adequate turgor. HEENT: He has slightly pinkish conjunctivae. Anicteric sclerae. No neck mass. No carotid bruits. No JVD. CHEST: No deformities. LUNGS: Clear breath sounds. HEART: Normal sinus rhythm. No murmur. No gallops. No rubs. ABDOMEN: Globular, soft, nontender. No masses. EXTREMITIES: No edema. No deformities. MEDICATIONS: Medications of May 22, 2018, were reviewed. LABORATORY DATA: Laboratories of May 20, 2018: Hemoglobin 11.7. Sodium 135, potassium 4.7, chloride 100, carbon dioxide 25, BUN 41, creatinine 6.44, glucose 71, and calcium 8.7. ASSESSMENT AND PLAN: End-stage renal disease. Continuing Wednesday, Wednesday, and Wednesday hemodialysis. Fluid removal as tolerated. Awaiting dialysis placement. The patient will have an options visit to consider peritoneal dialysis this coming Wednesday. I had a long discussion with the patient's son and [id number] and they translated for me. Overall, I agree with current management. Job ID: [id number] [facility]
--- NOTE | 2018-05-22 20:10 | PDOC.PN ---
- Subjective Encounter Start Date: 05/22/18 Encounter Start Time: 11:30 - Objective Resuscitation Status - Order Detail: 05/19/18 07:36 Resuscitation Status Routine Resuscitation Status: FULL: Full Resuscitation MAR Reviewed: Yes Vital Signs & Weight: Vital Signs (12 hours) Temp Pulse Resp BP BP Pulse Ox 05/22/18 17:15 68 139/73 05/22/18 15:44 97.8 F 68 16 139/73 100 05/22/18 11:18 97.6 F 77 16 149/69 H 93 L 05/22/18 09:02 73 154/76 H 05/22/18 09:01 73 154/76 H 05/22/18 08:37 98.1 F 73 16 154/76 H 94 L Weight Weight 149 lb 3 oz I&O: 05/21/18 05/22/18 05/23/18 06:59 06:59 06:59 Intake Total 580 480 540 Balance 580 480 540 Result Diagrams: 05/20/18 04:31 05/20/18 04:31 Additional Labs: Accuchecks 05/22/18 05/22/18 05/22/18 15:43 11:19 05:47 POC Glucose 105 176 H 100 05/21/18 20:20 POC Glucose 127 H Phys Exam - Physical Examination Constitutional: NAD Respiratory: no wheezing, no rhonchi Cardiovascular: RRR, no rub Gastrointestinal: soft, non-tender, positive bowel sounds Musculoskeletal: no edema Neurological: moves all 4 limbs Dx/Plan (1) Volume overload Code(s): E87.70 - FLUID OVERLOAD, UNSPECIFIED Status: Acute Comment: with pleural effusion due to missed hemodialysis (2) Hyperkalemia Code(s): E87.5 - HYPERKALEMIA Status: Acute (3) ESRD (end stage renal disease) on dialysis Code(s): N18.6 - END STAGE RENAL DISEASE; Z99.2 - DEPENDENCE ON RENAL DIALYSIS Status: Acute Comment: with secondary hyperparathyroidism (4) HTN (hypertension) Code(s): I10 - ESSENTIAL (PRIMARY) HYPERTENSION Status: Chronic Comment: on Amlodipine and Hydralazine (5) DM2 (diabetes mellitus, type 2) Status: Chronic Qualifiers: Chronic kidney disease stage: on chronic dialysis (6) Metabolic acidosis Code(s): E87.2 - ACIDOSIS Status: Acute - Plan cont current plan of care, DVT proph w/SCDs Await outpt Dialysis setup -: Cont current meds as below Review of Systems - Review of Systems Respiratory: negative: Cough, Dry, Shortness of Breath, Hemoptysis, SOB with Excertion, Pleuritic Pain, Sputum, Wheezing Cardiovascular: negative: chest pain, palpitations, orthopnea, paroxysmal nocturnal dyspnea, edema, light headedness, other - Medications/Allergies Allergies/Adverse Reactions: Allergies Allergy/AdvReac Type Severity Reaction Status Date / Time No Known Drug Allergies Allergy Verified 05/18/18 20:23 Medications: Current Medications Acetaminophen (Tylenol) 650 mg PO Q4H PRN PRN Reason: Headache/Fever/Mild Pain (1-3) Last Admin: 05/19/18 23:48 Dose: 650 mg Acetaminophen (Tylenol) 1,000 mg PO Q6H PRN PRN Reason: Moderate to Severe Pain (6-10) Last Admin: 05/21/18 20:28 Dose: 1,000 mg Amlodipine Besylate (Norvasc) 10 mg PO DAILY [facility] Last Admin: 05/22/18 09:01 Dose: 10 mg Calcitriol (Rocaltrol) 0.25 mcg PO DAILY [facility] Last Admin: 05/22/18 09:02 Dose: 0.25 mcg Calcium Carbonate (Tums) 1,000 mg PO Q4H PRN PRN Reason: Heartburn or Indigestion Dextrose/Water (Dextrose 50%) 25 gm SLOW IVP PRN PRN PRN Reason: Hypoglycemia Glucagon (Glucagon) 1 mg IM PRN PRN PRN Reason: Hypoglycemia Hydralazine HCl (Apresoline) 25 mg PO TID [facility] Last Admin: 05/22/18 17:15 Dose: 25 mg Dextrose/Water (D5w) 1,000 mls @ 0 mls/hr IV .Q0M PRN PRN Reason: Hypoglycemia Ondansetron HCl (Zofran Odt) 4 mg PO Q6H PRN PRN Reason: Nausea/Vomiting Ondansetron HCl (Zofran) 4 mg IVP Q6H PRN PRN Reason: Nausea/Vomiting Senna/Docusate Sodium (Senokot S) 2 tab PO BID PRN PRN Reason: Constipation Sevelamer Carbonate [facility]) [facility] Last Admin: 05/22/18 17:17 Dose: 800 mg Sodium Chloride (Flush - Normal Saline) 10 ml IVF PRN PRN PRN Reason: Saline Flush Last Admin: 05/19/18 21:26 Dose: 10 ml Tramadol HCl (Ultram) 50 mg PO Q6H PRN PRN Reason: Mild-Moderate Pain (1-5) Tramadol HCl (Ultram) 100 mg PO Q6H PRN PRN Reason: Moderate to Severe Pain (6-10)
[2018-05-23] MEDS: Calcitriol 0.25 MCG CAP PO SCH (08:46)
[2018-05-23] MEDS: Amlodipine 10 MG TAB PO SCH (08:46)
[2018-05-23] MEDS: hydrALAZINE 25 MG TAB PO SCH ×3 (08:47→20:23)
[2018-05-23] MEDS: Sevelamer Carbonate 800 MG TAB PO SCH ×3 (08:47→16:27)
--- NOTE | 2018-05-23 22:23 | PDOC.PN ---
- Subjective Encounter Start Date: 05/23/18 Encounter Start Time: 09:00 Patient seen and examined for ESRD. No new complaints. No overnight events - Objective Resuscitation Status - Order Detail: 05/19/18 07:36 Resuscitation Status Routine Resuscitation Status: FULL: Full Resuscitation MAR Reviewed: Yes Vital Signs & Weight: Vital Signs (12 hours) Temp Pulse Resp BP BP Pulse Ox 05/23/18 20:23 75 137/63 05/23/18 20:00 98.2 F 75 16 137/63 92 L 05/23/18 15:51 98.4 F 76 16 150/82 H 96 05/23/18 14:31 73 148/72 H 05/23/18 10:57 98.2 F 73 18 149/72 H 93 L Weight Weight 149 lb 3 oz I&O: 05/22/18 05/23/18 05/24/18 06:59 06:59 06:59 Intake Total 018 127 4157 Balance 051 489 3571 Result Diagrams: 05/20/18 04:31 05/20/18 04:31 Additional Labs: Accuchecks 05/23/18 05/23/18 05/23/18 20:10 15:51 11:11 POC Glucose 143 H 124 H 168 H 05/23/18 05/23/18 10:57 04:40 POC Glucose 329 H 87 Phys Exam - Physical Examination Constitutional: NAD Respiratory: no wheezing, no rhonchi Cardiovascular: RRR, no rub Gastrointestinal: soft, non-tender, positive bowel sounds Musculoskeletal: no edema Neurological: moves all 4 limbs Dx/Plan (1) Volume overload Code(s): E87.70 - FLUID OVERLOAD, UNSPECIFIED Status: Acute Comment: with pleural effusion due to missed hemodialysis (2) Hyperkalemia Code(s): E87.5 - HYPERKALEMIA Status: Acute (3) ESRD (end stage renal disease) on dialysis Code(s): N18.6 - END STAGE RENAL DISEASE; Z99.2 - DEPENDENCE ON RENAL DIALYSIS Status: Acute Comment: with secondary hyperparathyroidism (4) HTN (hypertension) Code(s): I10 - ESSENTIAL (PRIMARY) HYPERTENSION Status: Chronic Comment: on Amlodipine and Hydralazine (5) DM2 (diabetes mellitus, type 2) Status: Chronic Qualifiers: Chronic kidney disease stage: on chronic dialysis (6) Metabolic acidosis Code(s): E87.2 - ACIDOSIS Status: Acute - Plan cont current plan of care, plan discussed w/ family, DVT proph w/SCDs Await outpt dialysis setup -: Stable for dc -: Cont current meds as below Review of Systems - Review of Systems Respiratory: negative: Cough, Dry, Shortness of Breath, Hemoptysis, SOB with Excertion, Pleuritic Pain, Sputum, Wheezing Cardiovascular: negative: chest pain, palpitations, orthopnea, paroxysmal nocturnal dyspnea, edema, light headedness, other - Medications/Allergies Allergies/Adverse Reactions: Allergies Allergy/AdvReac Type Severity Reaction Status Date / Time No Known Drug Allergies Allergy Verified 05/18/18 20:23 Medications: Current Medications Acetaminophen (Tylenol) 650 mg PO Q4H PRN PRN Reason: Headache/Fever/Mild Pain (1-3) Last Admin: 05/19/18 23:48 Dose: 650 mg Acetaminophen (Tylenol) 1,000 mg PO Q6H PRN PRN Reason: Moderate to Severe Pain (6-10) Last Admin: 05/21/18 20:28 Dose: 1,000 mg Amlodipine Besylate (Norvasc) 10 mg PO DAILY [facility] Last Admin: 05/23/18 08:46 Dose: 10 mg Calcitriol (Rocaltrol) 0.25 mcg PO DAILY [facility] Last Admin: 05/23/18 08:46 Dose: 0.25 mcg Calcium Carbonate (Tums) 1,000 mg PO Q4H PRN PRN Reason: Heartburn or Indigestion Dextrose/Water (Dextrose 50%) 25 gm SLOW IVP PRN PRN PRN Reason: Hypoglycemia Glucagon (Glucagon) 1 mg IM PRN PRN PRN Reason: Hypoglycemia Hydralazine HCl (Apresoline) 25 mg PO TID [facility] Last Admin: 05/23/18 20:23 Dose: 25 mg Dextrose/Water (D5w) 1,000 mls @ 0 mls/hr IV .Q0M PRN PRN Reason: Hypoglycemia Ondansetron HCl (Zofran Odt) 4 mg PO Q6H PRN PRN Reason: Nausea/Vomiting Ondansetron HCl (Zofran) 4 mg IVP Q6H PRN PRN Reason: Nausea/Vomiting Senna/Docusate Sodium (Senokot S) 2 tab PO BID PRN PRN Reason: Constipation Sevelamer Carbonate (Renvela) 800 mg PO TID-[facility] Last Admin: 05/23/18 16:27 Dose: 800 mg Sodium Chloride (Flush - Normal Saline) 10 ml IVF PRN PRN PRN Reason: Saline Flush Last Admin: 05/19/18 21:26 Dose: 10 ml Tramadol HCl (Ultram) 50 mg PO Q6H PRN PRN Reason: Mild-Moderate Pain (1-5) Tramadol HCl (Ultram) 100 mg PO Q6H PRN PRN Reason: Moderate to Severe Pain (6-10)
[2018-05-24] MEDS: Sevelamer Carbonate 800 MG TAB PO SCH ×3 (08:00→15:54)
[2018-05-24] MEDS: hydrALAZINE 25 MG TAB PO SCH ×3 (08:00→20:55)
[2018-05-24] MEDS: Amlodipine 10 MG TAB PO SCH (08:00)
[2018-05-24] MEDS: Calcitriol 0.25 MCG CAP PO SCH (08:00)
--- NOTE | 2018-05-24 09:11 | PRG ---
DATE OF SERVICE: 05/24/2018 SUBJECTIVE: Dereje Hebert is doing well. His left arm fistula looks good. He has a good thrill and bruit. His surgical wound looks good. He does not have any hand dysfunction. He is dialyzing, awaiting for outpatient dialysis arrangements. I have encouraged him to exercise his left hand and arm and use it without restriction. No lifting restrictions. He should follow up with me in my office in 3 to 4 weeks. This fistula is already on its way to maturation. I think that after seeing him in 3 to 4 weeks in my office, we could release the dialysis unit, start using the fistula. We should be able to get his catheter out soon. He should see me as an outpatient in this hospitalization. I will see him as needed. Please call if necessary. Job ID: [id number]
--- NOTE | 2018-05-24 09:20 | PRG ---
DATE OF SERVICE: 05/24/2018 SUBJECTIVE: Mr. Suarez is a 62-year-old male with chronic renal failure/end-stage renal disease. He was admitted for maintenance hemodialysis. He has no dialysis outpatient placement yet. We are awaiting for placement. No new complaints today. He wants to shorten his treatment to 3 hours. OBJECTIVE: VITAL SIGNS: Blood pressure is 141/75, heart rate 71, respiratory rate 16, temperature 97.6, pulse ox 96%. GENERAL EXAM: Awake, alert and comfortable. SKIN: Adequate turgor. HEENT: He has slightly pale conjunctivae. Anicteric sclerae. NECK: No neck mass. No carotid bruits. No JVD. CHEST: No deformities. LUNGS: Clear breath sounds. No wheezing. No crackles. HEART: Normal sinus rhythm. No murmurs, no gallops, no rubs. ABDOMEN: Globular, soft, nontender. No masses. EXTREMITIES: No edema. No deformities. MEDICATIONS: Medications of May 24, 2018, reviewed. LABORATORIES: May 20, 2018, white count 7.8, hemoglobin 11.7. Sodium 135, potassium 4.7, chloride 100, carbon dioxide 25, BUN 41, creatinine 6.44, calcium 8.7. ASSESSMENT AND PLAN: End-stage renal disease/chronic renal failure. The patient is undergoing hemodialysis and I am at the bedside. Fluid removal as tolerated. We will do a 3-hour hemodialysis. Continue Wednesday, and Wednesday dialysis regimen. A PPD has been ordered. We are awaiting outpatient dialysis placement for this patient. Options visit has been shown to the patient to consider peritoneal dialysis/ hemdialysis. We will recheck basic metabolic panel and CBC in the morning. Job ID: [id number] [facility]
[2018-05-24] MEDS ORDERED: Heparin 1,000 UNITS/ML VIAL ONE (11:11)
--- NOTE | 2018-05-24 16:43 | PDOC.PN ---
- Subjective Encounter Start Date: 05/24/18 Encounter Start Time: 16:41 Mr. Jannet Hebert was seen today in follow-up of ESRD awaiting dialysis. He does not have any complaints. He denies chest pain or difficulty breathing. - Objective Resuscitation Status - Order Detail: 05/19/18 07:36 Resuscitation Status Routine Resuscitation Status: FULL: Full Resuscitation MAR Reviewed: Yes Vital Signs & Weight: Vital Signs (12 hours) Temp Pulse Resp BP BP Pulse Ox 05/24/18 15:54 72 151/79 H 05/24/18 12:42 96.5 F L 72 16 151/75 H 97 05/24/18 08:53 96 05/24/18 08:00 71 05/24/18 07:31 97.6 F 71 16 141/75 H 96 Weight Weight 146 lb 8 oz I&O: 05/23/18 05/24/18 05/25/18 06:59 06:59 06:59 Intake Total 540 1220 Balance 540 1220 Result Diagrams: 05/20/18 04:31 05/20/18 04:31 Additional Labs: Accuchecks 05/24/18 05/23/18 12:47 20:10 POC Glucose 144 H 143 H Phys Exam - Physical Examination HEENT: PERRLA Respiratory: no wheezing, no rales, no rhonchi, clear to auscultation bilateral Cardiovascular: RRR, no significant murmur, no rub Gastrointestinal: soft, non-tender, positive bowel sounds Musculoskeletal: pulses present, edema present Dx/Plan (1) ESRD (end stage renal disease) on dialysis Code(s): N18.6 - END STAGE RENAL DISEASE; Z99.2 - DEPENDENCE ON RENAL DIALYSIS Status: Acute Comment: with secondary hyperparathyroidism (2) DM2 (diabetes mellitus, type 2) Status: Chronic Qualifiers: Chronic kidney disease stage: on chronic dialysis (3) HTN (hypertension) Code(s): I10 - ESSENTIAL (PRIMARY) HYPERTENSION Status: Chronic Comment: on Amlodipine and Hydralazine - Plan * ESRD- he is stable on dialysis. Continue other renal replacement therapy * Awaiting out patient dialysis placement * HTN- blood pressure is stable- continue Hydralazine * DM- blood glucose is stable.
[2018-05-24] MEDS: Acetaminophen 500 MG TAB PO PRN (20:54)
[2018-05-25 06:55] LABS: #Basophils 0.1 thou/uL (0.0-0.2); #Eosinphils 0.5 thou/uL (0.0-0.7); #Lymphocytes 2.1 thou/uL (1.20-3.40); #Monocytes 1.1 thou/uL (0.11-0.59); #Neutrophils 4.8 thou/uL (1.40-6.50); %Basophils 0.7 % (0.0-1.0); %Eosinophils 5.7 % (0.0-10.0); %Lymphocytes 24.7 % (21.0-51.0); %Monocytes 13.3 % (0.0-10.0); %Neutrophils 55.7 % (42.0-75.0); Hemoglobin 11.1 g/dL (14.0-18.0); Mean Corpuscular HGB CONC 33.1 g/dL (32.0-36.0); Mean Corpuscular Hemoglobin 31.6 pg (27.0-31.0); Mean Corpuscular Volume 95.3 fL (78.0-98.0); Mean Platelet Volume 7.4 fL (7.4-10.4); Platelet Count 242 thou/uL (130-400); RBC Distribution Width 11.6 % (11.5-14.5); Red Blood Cell (RBC) Count 3.52 mill/uL (4.70-6.10); White Blood Cell (WBC) Count 8.6 thou/uL (4.8-10.8)
[2018-05-25 07:09] LABS: Anion Gap 16 mmol/L (10-20); BUN (Urea Nitrogen) 41 mg/dL (8.4-25.7); Calc. Creatinine Clearance 11 mL/min (70-130); Calcium 8.7 mg/dL (7.8-10.44); Carbon Dioxide 27 mmol/L (23-31); Chloride 99 mmol/L (98-107); Estimated GFR-MDRD 9; Glucose 89 mg/dL (80-115); Potassium 4.9 mmol/L (3.5-5.1); Sodium 137 mmol/L (136-145)
[2018-05-25] MEDS ORDERED: cloNIDine 0.1 MG TAB PO PRN (08:25)
[2018-05-25] MEDS ORDERED: cloNIDine 0.1 MG TAB PO SCH (08:30)
[2018-05-25] MEDS ORDERED: Tuberculin PPD 0.1 ML VIAL I-DERMAL SCH (08:45)
[2018-05-25] MEDS: Calcitriol 0.25 MCG CAP PO SCH (08:46)
[2018-05-25] MEDS: hydrALAZINE 25 MG TAB PO SCH ×3 (08:47→20:09)
[2018-05-25] MEDS: Sevelamer Carbonate 800 MG TAB PO SCH ×3 (08:47→19:04)
[2018-05-25] MEDS: Amlodipine 10 MG TAB PO SCH (08:48)
--- NOTE | 2018-05-25 09:45 | PRG ---
DATE OF SERVICE: 05/25/2018 SUBJECTIVE: Mr. Jannet Hebert is a 62-year-old male with chronic renal failure/ESRD and currently on maintenance hemodialysis. We are awaiting outpatient dialysis placement. The family has requested that we consider peritoneal dialysis. I have consulted surgery for PD catheter placement. No other complaints today. OBJECTIVE: VITAL SIGNS: Blood pressure is 205/81-before BP medications, heart rate 70, respiratory rate 18, temperature 98, and pulse ox 95%. GENERAL: Noted to be awake, alert, comfortable. SKIN: Adequate turgor. HEENT: Pinkish conjunctivae. Anicteric, sclerae. No neck mass. No carotid bruits. No JVD. CHEST: No deformities. LUNGS: Clear breath sounds. No wheezing. No crackles.. HEART: Normal sinus rhythm. No murmur. No gallops. No rubs. ABDOMEN: Globular, soft, and nontender. No masses.. EXTREMITIES: No edema. No deformities. MEDICATIONS: Medications of May 25, 2018, reviewed. LABORATORY DATA: Laboratories of May 25, 2018; white count 8.6, hemoglobin 11.1. Sodium 137, potassium 4.9, chloride 99, carbon dioxide 27, BUN 41, creatinine 6.53, glucose 89, and calcium 8.7. ASSESSMENT AND PLAN: 1. End-stage renal disease/chronic renal failure. Continue current hemodialysis regimen of Wednesday, , and Wednesday. Fluid removal as tolerated. The patient is interested in pursuing peritoneal dialysis. Consult surgery for PD catheter placement. 2. Hyperphosphatemia/elevated PTH-currently on calcitriol and phosphate binders. 3. Agree with current management. Awaiting outpatient dialysis placement. Job ID: [id number]
--- NOTE | 2018-05-25 13:58 | PDOC.PN ---
- Subjective Encounter Start Date: 05/25/18 Encounter Start Time: 11:45 Mr. Power was seen today in follow-up of New ESRD. He does not have any complaints. - Objective Resuscitation Status - Order Detail: 05/19/18 07:36 Resuscitation Status Routine Resuscitation Status: FULL: Full Resuscitation MAR Reviewed: Yes Vital Signs & Weight: Vital Signs (12 hours) Temp Pulse Resp BP BP Pulse Ox 05/25/18 12:06 98.3 F 67 20 150/72 H 97 05/25/18 08:48 70 205/81 H 05/25/18 08:47 70 205/81 H 05/25/18 07:35 98.0 F 70 18 203/71 H 95 Weight Weight 150 lb 12.8 oz I&O: 05/24/18 05/25/18 05/26/18 06:59 06:59 06:59 Intake Total 1220 800 Balance 1220 800 Result Diagrams: 05/25/18 06:40 05/25/18 06:40 Additional Labs: Accuchecks 05/25/18 05/25/18 05/24/18 11:24 05:09 19:57 POC Glucose 144 H 86 111 H 05/24/18 15:47 POC Glucose 183 H Phys Exam - Physical Examination HEENT: PERRLA Respiratory: no wheezing, no rales, no rhonchi, clear to auscultation bilateral Cardiovascular: RRR, no significant murmur, no rub Gastrointestinal: soft, non-tender, no distention, positive bowel sounds Musculoskeletal: no edema, pulses present Dx/Plan (1) ESRD (end stage renal disease) on dialysis Code(s): N18.6 - END STAGE RENAL DISEASE; Z99.2 - DEPENDENCE ON RENAL DIALYSIS Status: Acute Comment: with secondary hyperparathyroidism (2) DM2 (diabetes mellitus, type 2) Status: Chronic Qualifiers: Chronic kidney disease stage: on chronic dialysis (3) HTN (hypertension) Code(s): I10 - ESSENTIAL (PRIMARY) HYPERTENSION Status: Chronic Comment: on Amlodipine and Hydralazine - Plan * ESRD- he is awaiting arrangements for Outpatient dialysis * HTN- his blood pressure has been elevated- will increase his dose of Hydralazine * DM- blood glucose has been stable.
[2018-05-26] MEDS: hydrALAZINE 25 MG TAB PO SCH ×3 (10:07→20:13)
[2018-05-26] MEDS: Sevelamer Carbonate 800 MG TAB PO SCH ×3 (10:07→17:01)
[2018-05-26] MEDS: Amlodipine 10 MG TAB PO SCH (10:07)
[2018-05-26] MEDS: Calcitriol 0.25 MCG CAP PO SCH (10:07)
[2018-05-26] MEDS ORDERED: Heparin 1,000 UNITS/ML VIAL ONE (11:11)
[2018-05-26 11:50] VITALS: BMI 24.9
[2018-05-26 13:06] LABS: QuantiFERON-TB Gold Plus POSITIVE (Negative)
--- NOTE | 2018-05-26 14:56 | PDOC.PN ---
- Subjective Encounter Start Date: 05/26/18 Encounter Start Time: 14:00 Mr. Power was seen today in follow-up of New ESRD. He does not have any new complaints. He denies chest pain or difficulty breathing. - Objective Resuscitation Status - Order Detail: 05/19/18 07:36 Resuscitation Status Routine Resuscitation Status: FULL: Full Resuscitation MAR Reviewed: Yes Vital Signs & Weight: Vital Signs (12 hours) Temp Pulse Resp BP Pulse Ox 05/26/18 11:46 97.8 F 67 16 162/75 H 99 05/26/18 10:07 68 05/26/18 08:11 98.6 F 68 16 185/76 H 98 05/26/18 08:00 98 Weight Admit Weight 165 lb Weight 154 lb 8 oz I&O: 05/25/18 05/26/18 05/27/18 06:59 06:59 06:59 Intake Total 800 305 Balance 800 305 Result Diagrams: 05/25/18 06:40 05/25/18 06:40 Additional Labs: Accuchecks 05/26/18 05/26/18 05/25/18 11:52 05:37 19:33 POC Glucose 75 88 179 H 05/25/18 16:36 POC Glucose 102 Phys Exam - Physical Examination HEENT: PERRLA Respiratory: no wheezing, no rales, no rhonchi, clear to auscultation bilateral Cardiovascular: RRR, no significant murmur, no rub Gastrointestinal: soft, non-tender, no distention, positive bowel sounds Musculoskeletal: no edema, pulses present Dx/Plan (1) ESRD (end stage renal disease) on dialysis Code(s): N18.6 - END STAGE RENAL DISEASE; Z99.2 - DEPENDENCE ON RENAL DIALYSIS Status: Acute Comment: with secondary hyperparathyroidism (2) DM2 (diabetes mellitus, type 2) Status: Chronic Qualifiers: Chronic kidney disease stage: on chronic dialysis (3) HTN (hypertension) Code(s): I10 - ESSENTIAL (PRIMARY) HYPERTENSION Status: Chronic Comment: on Amlodipine and Hydralazine - Plan * ESRD- stable * DM- blood glucose is stable * HTN- blood pressure is stable.
[2018-05-26] MEDS ORDERED: CEFAZOLIN 2 GM in Premix Bag 1 BAG IVPB SCH (17:30)
[2018-05-26] MEDS ORDERED: CEFAZOLIN/Water 2 GM/20 ML SYRINGE SLOW IVP SCH (17:30)
--- NOTE | 2018-05-26 17:31 | PRG ---
DATE OF SERVICE: 05/26/2018 Dereje Hebert is doing well. I have been asked to see him regarding placement of a peritoneal dialysis catheter. He underwent placement of a hemodialysis catheter in left arm fistula on 05/20/2018. Left arm cephalic vein fistula in upper arm has a good thrill and bruit and it is well distended and should be ready to use in the next week or 2. I have been asked to see him regarding placement of a peritoneal dialysis catheter. I have explained the procedure to the patient. He understands risks and benefits and will plan laparoscopic peritoneal dialysis catheter placement in the morning. Job ID: [id number]
--- NOTE | 2018-05-26 21:05 | PRG ---
DATE OF SERVICE: 05/26/2018 SUBJECTIVE: The patient with end-stage renal disease, on maintenance hemodialysis. No new complaint. He had dialysis earlier today. Awaiting placement. OBJECTIVE: VITAL SIGNS: Blood pressure 133/71, SpO2 of 99 on room air, pulse 78, respiratory rate 18, temperature 98.2. GENERAL: Middle-aged male, in no obvious distress. Afebrile. HEENT: Normocephalic, atraumatic. CHEST: Fair air entry bilateral with no obvious crackle or rhonchi. CARDIAC: Regular rhythm and rate. ABDOMEN: Full, soft, nontender, nondistended with normal bowel sounds. NEUROLOGIC: Conscious and alert, oriented x3. EXTREMITIES: Left tunneled dialysis catheter noted. DIAGNOSTIC DATA: No BMP today. ASSESSMENT: 1. End-stage renal disease, on maintenance hemodialysis. We will continue maintenance hemodialysis according to outpatient schedule of Wednesday, , Wednesday. The patient had dialysis today and this was well tolerated. The patient is interested in outpatient peritoneal dialysis and Surgery has been consulted for PD catheter placement. 2. Hypertension: We will continue current antihypertensives and monitor vitals with a view to adjust the medication to get adequate BP control. Job ID: [id number]
[2018-05-27] MEDS: Sevelamer Carbonate 800 MG TAB PO SCH ×3 (11:38→18:25)
[2018-05-27] MEDS: hydrALAZINE 25 MG TAB PO SCH ×3 (11:39→22:43)
[2018-05-27] MEDS: Calcitriol 0.25 MCG CAP PO SCH (11:39)
[2018-05-27] MEDS: Amlodipine 10 MG TAB PO SCH (11:39)
--- NOTE | 2018-05-27 14:06 | PDOC.PN ---
- Subjective Encounter Start Date: 05/27/18 Encounter Start Time: 12:05 Mr. Power was seen today in follow-up of ESRD. He does not have any new complaints. - Objective Resuscitation Status - Order Detail: 05/19/18 07:36 Resuscitation Status Routine Resuscitation Status: FULL: Full Resuscitation MAR Reviewed: Yes Vital Signs & Weight: Vital Signs (12 hours) Temp Pulse Resp BP Pulse Ox 05/27/18 11:39 72 05/27/18 11:28 98.7 F 72 18 160/81 H 93 L 05/27/18 08:00 96 05/27/18 07:17 98.2 F 77 18 166/73 H 96 Weight Admit Weight 165 lb Weight 150 lb 9.6 oz I&O: 05/26/18 05/27/18 05/28/18 06:59 06:59 06:59 Intake Total 305 300 Balance 305 300 Result Diagrams: 05/25/18 06:40 05/25/18 06:40 Additional Labs: Accuchecks 05/27/18 05/27/18 05/26/18 11:31 04:17 21:24 POC Glucose 77 89 137 H 05/26/18 16:18 POC Glucose 107 Phys Exam - Physical Examination HEENT: PERRLA Respiratory: no wheezing, no rales, no rhonchi, clear to auscultation bilateral Cardiovascular: RRR, no significant murmur, no rub Gastrointestinal: soft, non-tender, no distention, positive bowel sounds Musculoskeletal: no edema Dx/Plan (1) ESRD (end stage renal disease) on dialysis Code(s): N18.6 - END STAGE RENAL DISEASE; Z99.2 - DEPENDENCE ON RENAL DIALYSIS Status: Acute Comment: with secondary hyperparathyroidism (2) DM2 (diabetes mellitus, type 2) Status: Chronic Qualifiers: Chronic kidney disease stage: on chronic dialysis (3) HTN (hypertension) Code(s): I10 - ESSENTIAL (PRIMARY) HYPERTENSION Status: Chronic Comment: on Amlodipine and Hydralazine - Plan * ESRD- clinically stable. He now requires dialysis. Awaiting outpatient arrangements * HTN- blood pressure is elevated, but trending down * DM- blood glucose is stable.
[2018-05-27] MEDS ORDERED: Rocuronium Bromide 10 MG/ML (10ML VIAL) ONE (15:52)
[2018-05-27] MEDS ORDERED: Lidocaine 1% PF 5 ML VIAL ONE (15:52)
[2018-05-27] MEDS ORDERED: PROPOFOL 200 MG/20 ML VIAL ONE (15:52)
[2018-05-27] MEDS ORDERED: Ondansetron PF 4 MG/2 ML Vial ONE (15:52)
[2018-05-27] MEDS ORDERED: Glycopyrrolate 0.2 MG/ML 5 ML SYRINGE ONE (15:52)
--- NOTE | 2018-05-27 17:31 | PRG ---
DATE OF SERVICE: 05/27/2018 SUBJECTIVE: No new problem. The patient is waiting for PD catheter placement today. Last hemodialysis was yesterday and he is due for dialysis tomorrow. OBJECTIVE: VITAL SIGNS: BP 160/81, pulse 72, temperature 98.7, respiratory rate 18, SpO2 93 on room air. GENERAL: No distress. Afebrile and anicteric. HEENT: Normocephalic, atraumatic. Pupils are equal and reacting to light. Oral mucosa is moist. RESPIRATORY: Good air entry bilaterally with no crackle or rhonchi. CARDIAC: Regular rhythm and rate with normal heart sounds 1 and 2. ABDOMEN: Full, soft, nontender, nondistended with normal bowel sounds. NEUROLOGICAL: Conscious, alert, oriented x3 with appropriate mental status. EXTREMITIES: Grossly normal looking, atraumatic with no edema. DIAGNOSTIC DATA: No BMP today. ASSESSMENT AND PLAN: 1. End-stage renal disease, on maintenance hemodialysis. The patient will continue regular hemodialysis on Wednesday, , and Saturdays. The patient had signified interest to switch to peritoneal dialysis. He is for PD catheter placement today by surgery. 2. Hypertension: Control is acceptable. We will continue same. DISPOSITION: Case management is working with placing patient in an outpatient dialysis unit. The patient can be discharged once . Job ID: [id number]
[2018-05-27] MEDS ORDERED: Lidocaine 2% PF 5 ML VIAL ONE (17:35)
[2018-05-27] MEDS ORDERED: Bupivacaine HCl 0.5%/Epinephrine 1:200,000/PF 30 ml Vial ONE (17:35)
[2018-05-27] MEDS ORDERED: Heparin 10,000 UNITS/1 ML VIAL ONE (17:35)
[2018-05-27] MEDS ORDERED: Fentanyl 100 MCG/2 ML VIAL ONE (18:12)
[2018-05-27] MEDS ORDERED: CEFAZOLIN 2 GM in Premix Bag 1 BAG IVPB SCH (18:30)
[2018-05-27] MEDS ORDERED: Ondansetron HCl/PF 4 MG/2 ML Vial IVP PRN (19:19)
[2018-05-27] MEDS ORDERED: Promethazine HCl 25 MG/ML VIAL IM PRN (19:19)
[2018-05-27] MEDS ORDERED: Promethazine HCl 25 MG/ML VIAL SLOW IVP PRN (19:19)
[2018-05-27] MEDS ORDERED: Heparin 10,000 UNITS/ 10 ML VIAL ONE (19:26)
--- NOTE | 2018-05-28 01:31 | OP ---
DATE OF PROCEDURE: 05/27/2018 PREOPERATIVE DIAGNOSES: 1. End-stage renal disease, desires peritoneal dialysis functioning though not yet access. 2. Left upper arm cephalic vein fistula. POSTOPERATIVE DIAGNOSES: 1. End-stage renal disease, desires peritoneal dialysis functioning though not yet access. 2. Left upper arm cephalic vein fistula. PROCEDURES PERFORMED: 1. Laparoscopic peritoneal dialysis catheter. 2. Laparoscopic adhesiolysis. 3. Laparoscopic omentopexy. ANESTHESIA: General, local 0.5% Marcaine with epinephrine 30 mL mixed with 1% xylocaine with epinephrine 30 mL. DESCRIPTION OF PROCEDURE: The patient was taken to the operating room, where under general anesthesia, abdomen was clipped of hair, prepared with ChloraPrep, and draped in routine fashion. Bilateral subcostal lateral stab incision was made. Pneumoperitoneum to 15 mmHg was obtained with a Veress needle, replaced with a 5 port, laparoscope inserted. A contralateral 5 mm port was placed under laparoscopic visualization. Local anesthetic was infiltrated in the skin and subcutaneous tissue about the operative site. Stab incision was made at the planned exit site at left lower quadrant, and a counter incision was made periumbilical left. An 8 mm port was placed through the counter incision directed caudally through the subcutaneous tissue, rectus sheath visualized laparoscopically, penetrating the abdominal cavity peritoneum caudally dependently. Peritoneal dialysis catheter, double-cuffed pigtail were placed through the 8 mm port, placed the pigtail catheter in the pelvis and the internal cuff in the rectus sheath, and the 8 mm port was removed. Using the Nahomy dissector was placed through the planned exit site left lower quadrant directed towards the counterincision. The catheter was grasped, brought out through the counter incision, placed the Fabric cuff beneath the skin exit site. Catheter was flushed with heparinized saline solution 1000 units heparin per 10 mL and connector and plug were applied. Subcutaneous tissue was approximated with 4-0 Monocryl, skin with subdermal 4-0 Monocryl. Omentum hung down to the pelvis, adherent to the pelvis. Ligature was used to take these adhesions down and omentopexy x2 performed, fixating the omentum to the upper abdominal wall with transabdominal fixation technique using a GraNee and 2-0 Vicryl suture. Once this was complete, good hemostasis was noted. Pneumoperitoneum reduced. All instruments were removed. All skin incisions were approximated with a subdermal 4-0 Monocryl and Hartley glue applied. Sterile dressings were placed around the peritoneal dialysis catheter. Job ID: [id number]
--- NOTE | 2018-05-28 08:47 | PRG ---
DATE OF SERVICE: 05/28/2018 SUBJECTIVE: The patient with end-stage renal disease, on dialysis, who relocated from [place]. He was continued on hemodialysis, but he requested peritoneal dialysis. Had PD catheter placement yesterday. Tolerating hemodialysis well. No acute issues. No new complaint. OBJECTIVE: VITAL SIGNS: BP 162/70, pulse 68, respiratory rate 18, SpO2 of 91 on room air. GENERAL: Comfortable, elderly male, in no obvious distress. Afebrile, anicteric, acyanotic. HEENT: Normocephalic and atraumatic. Pupils are equal and reacting to light. Oral mucosa is moist. RESPIRATORY: Good air entry bilaterally with no crackles or rhonchi. CARDIAC: Regular rhythm and rate with normal heart sounds 1 and 2. GI: Abdomen is full, soft, nondistended with normal bowel sounds. Left paramedian dialysis catheter with dressing noted. EXTREMITIES: Grossly normal looking, atraumatic with no edema. Left AV fistula with good thrill noted. NEUROLOGIC: Conscious, alert, oriented x3 with appropriate mental status. ASSESSMENT AND PLAN: 1. End-stage renal disease: The patient is on hemodialysis Wednesday, , and Wednesday. He will have 4 hours of hemodialysis today. He had PD catheter placed. Plan will be to discharge him once arranged for him to subsequently get PD training. 2. Hypertension. Control is fair. We will continue current medications. 3. Volume status: Acceptable. We will continue UF as tolerated with hemodialysis. Job ID: [id number]
[2018-05-28] MEDS: Calcitriol 0.25 MCG CAP PO SCH (09:08)
[2018-05-28] MEDS: Amlodipine 10 MG TAB PO SCH (09:08)
[2018-05-28] MEDS: hydrALAZINE 25 MG TAB PO SCH ×3 (09:08→20:27)
[2018-05-28] MEDS: Sevelamer Carbonate 800 MG TAB PO SCH ×3 (09:08→17:27)
[2018-05-28] MEDS: Acetaminophen 500 MG TAB PO PRN (11:10)
[2018-05-28] MEDS ORDERED: Heparin 1,000 UNITS/ML VIAL ONE (11:11)
[2018-05-28 13:47] LABS: #Eosinphils 0.3 thou/uL (0.0-0.7); #Lymphocytes 1.6 thou/uL (1.20-3.40); #Monocytes 0.7 thou/uL (0.11-0.59); #Neutrophils 4.9 thou/uL (1.40-6.50); %Basophils 0.6 % (0.0-1.0); %Eosinophils 3.7 % (0.0-10.0); %Lymphocytes 21.6 % (21.0-51.0); %Monocytes 9.6 % (0.0-10.0); %Neutrophils 64.6 % (42.0-75.0); Hemoglobin 10.2 g/dL (14.0-18.0); Mean Corpuscular HGB CONC 33.3 g/dL (32.0-36.0); Mean Corpuscular Hemoglobin 31.6 pg (27.0-31.0); Mean Corpuscular Volume 94.9 fL (78.0-98.0); Mean Platelet Volume 7.2 fL (7.4-10.4); Platelet Count 222 thou/uL (130-400); RBC Distribution Width 11.4 % (11.5-14.5); Red Blood Cell (RBC) Count 3.23 mill/uL (4.70-6.10); White Blood Cell (WBC) Count 7.6 thou/uL (4.8-10.8)
[2018-05-28 14:06] LABS: Anion Gap 17 mmol/L (10-20); BUN (Urea Nitrogen) 53 mg/dL (8.4-25.7); Calc. Creatinine Clearance 11 mL/min (70-130); Calcium 8.5 mg/dL (7.8-10.44); Carbon Dioxide 25 mmol/L (23-31); Chloride 100 mmol/L (98-107); Estimated GFR-MDRD 8; Glucose 89 mg/dL (80-115); Potassium 4.9 mmol/L (3.5-5.1); Sodium 137 mmol/L (136-145)
--- NOTE | 2018-05-28 15:56 | PDOC.PN ---
- Subjective Encounter Start Date: 05/28/18 Encounter Start Time: 13:00 Mr. Power was seen today in follow-up of ESRD. He does not have any complaints today. - Objective Resuscitation Status - Order Detail: 05/19/18 07:36 Resuscitation Status Routine Resuscitation Status: FULL: Full Resuscitation MAR Reviewed: Yes Vital Signs & Weight: Vital Signs (12 hours) Temp Pulse Resp BP BP BP Pulse Ox 05/28/18 14:12 69 05/28/18 10:58 98.4 F 69 20 150/72 H 92 L 05/28/18 09:08 68 162/70 H 05/28/18 07:40 97.9 F 68 18 162/70 H 91 L 05/28/18 04:00 98 F 72 20 134/64 96 Weight Admit Weight 165 lb Weight 150 lb 12.668 oz I&O: 05/27/18 05/28/18 05/29/18 06:59 06:59 06:59 Intake Total 300 Balance 300 Result Diagrams: 05/28/18 13:38 05/28/18 13:38 Additional Labs: Accuchecks 05/28/18 05/28/18 05/28/18 10:55 04:40 00:25 POC Glucose 119 H 102 95 05/27/18 16:32 POC Glucose 75 Phys Exam - Physical Examination HEENT: PERRLA Respiratory: no wheezing, no rales, no rhonchi, clear to auscultation bilateral Cardiovascular: RRR, no significant murmur, no rub Gastrointestinal: soft, non-tender, no distention, positive bowel sounds Musculoskeletal: no edema, pulses present Dx/Plan (1) ESRD (end stage renal disease) on dialysis Code(s): N18.6 - END STAGE RENAL DISEASE; Z99.2 - DEPENDENCE ON RENAL DIALYSIS Status: Acute Comment: with secondary hyperparathyroidism (2) DM2 (diabetes mellitus, type 2) Status: Chronic Qualifiers: Chronic kidney disease stage: on chronic dialysis (3) HTN (hypertension) Code(s): I10 - ESSENTIAL (PRIMARY) HYPERTENSION Status: Chronic Comment: on Amlodipine and Hydralazine - Plan * ESRD- he had the placement of a PD catheter and AV fistula yesterday * HTN- blood pressure is trending down some * DM- blood glucose is stable. * Awaiting Outpatient dialysis placement
[2018-05-29] MEDS: hydrALAZINE 25 MG TAB PO SCH ×3 (08:44→20:20)
[2018-05-29] MEDS: Calcitriol 0.25 MCG CAP PO SCH (08:44)
[2018-05-29] MEDS: Sevelamer Carbonate 800 MG TAB PO SCH ×3 (08:44→18:09)
[2018-05-29] MEDS: Amlodipine 10 MG TAB PO SCH (08:45)
--- NOTE | 2018-05-29 11:41 | PDOC.PN ---
- Subjective Encounter Start Date: 05/29/18 Encounter Start Time: 11:39 Mr. Power was seen todayin follow-up of ESRD. He has a little soreness where the PD catheter was placed, otherwise he does not have any complaints. - Objective Resuscitation Status - Order Detail: 05/19/18 07:36 Resuscitation Status Routine Resuscitation Status: FULL: Full Resuscitation MAR Reviewed: Yes Vital Signs & Weight: Vital Signs (12 hours) Temp Pulse Resp BP BP Pulse Ox 05/29/18 08:45 71 150/76 H 05/29/18 08:44 71 150/76 H 05/29/18 08:00 98.1 F 05/29/18 07:00 98.1 F 71 18 150/76 H 93 L Weight Admit Weight 165 lb Weight 150 lb 9.635 oz I&O: 05/28/18 05/29/18 05/30/18 06:59 06:59 06:59 Intake Total 350 Balance 350 Result Diagrams: 05/28/18 13:38 05/28/18 13:38 Additional Labs: Accuchecks 05/29/18 05/28/18 05/28/18 04:15 19:16 17:06 POC Glucose 78 191 H 93 05/28/18 10:55 POC Glucose 119 H Phys Exam - Physical Examination HEENT: PERRLA Respiratory: no wheezing, no rales, no rhonchi, clear to auscultation bilateral Cardiovascular: RRR, no significant murmur, no rub Gastrointestinal: soft, non-tender, no distention, positive bowel sounds Musculoskeletal: no edema, pulses present Dx/Plan (1) ESRD (end stage renal disease) on dialysis Code(s): N18.6 - END STAGE RENAL DISEASE; Z99.2 - DEPENDENCE ON RENAL DIALYSIS Status: Acute Comment: with secondary hyperparathyroidism (2) DM2 (diabetes mellitus, type 2) Status: Chronic Qualifiers: Chronic kidney disease stage: on chronic dialysis (3) HTN (hypertension) Code(s): I10 - ESSENTIAL (PRIMARY) HYPERTENSION Status: Chronic Comment: on Amlodipine and Hydralazine - Plan * ESRD- continue dialysis as tolerated * HTN- blood pressure is trending down * DM- blood glucose is stable * Awaiting outpatient dialysis arrangements.
[2018-05-30] MEDS: hydrALAZINE 25 MG TAB PO SCH ×2 (08:15→15:20)
[2018-05-30] MEDS: Sevelamer Carbonate 800 MG TAB PO SCH ×2 (08:15→12:53)
[2018-05-30] MEDS: Calcitriol 0.25 MCG CAP PO SCH (08:15)
[2018-05-30] MEDS: Amlodipine 10 MG TAB PO SCH (08:16)
--- NOTE | 2018-05-30 10:11 | PRG ---
DATE OF SERVICE: 05/30/2018 SUBJECTIVE: Mr. Hebert is doing well today. His left upper arm cephalic vein fistula is working well with a good thrill and bruit. Surgical site, abdomen, laparoscopic, well healed. Abdomen is soft and nontender, status post laparoscopic peritoneal dialysis catheter, laparoscopic adhesiolysis, laparoscopic omentopexy on 05/27/2018. ASSESSMENT AND PLAN: Doing well with a functioning left arm fistula. He should see the peritoneal dialysis nurse this week inpatient or outpatient to flush his PD catheter and begin training using the PD catheter. I should see him in my office in 2 to 3 weeks. Call if necessary sooner. Otherwise, I will see him as needed in this hospitalization and follow him as an outpatient. Job ID: [id number]
--- NOTE | 2018-05-30 10:47 | PRG ---
DATE OF SERVICE: 05/30/2018 SUBJECTIVE: Mr. Hebert is a 62-year-old male with chronic renal failure/end-stage renal disease. In the interim, he had a new cuff hemodialysis catheter placed and he had a PD catheter. No new complaints today. No complaints of chest pain or shortness of breath. OBJECTIVE: VITAL SIGNS: Blood pressure 160/71, heart rate 73. GENERAL: Awake, alert, comfortable, not in distress. SKIN: Adequate turgor. HEENT: He has pinkish conjunctivae. Anicteric sclerae. No neck mass. No carotid bruits. No JVD. CHEST: No deformities. LUNGS: Clear breath sounds. No wheezing. No crackles. HEART: Normal sinus rhythm. No murmur. No gallops. No rubs. ABDOMEN: Globular, soft, nontender. No masses. EXTREMITIES: No edema. No deformities. MEDICATIONS: Medications of 05/30/2018, was reviewed. LABORATORY DATA: Laboratories of 05/28/2018; white count 7.6, hemoglobin 10.2. 05/28/2018; BUN 53, creatinine 6.92. ASSESSMENT AND PLAN: 1. End-stage renal disease, continuing 3 times a week hemodialysis regimen. The patient has a PD catheter. He will be training for peritoneal dialysis. He has a placement with [facility] at the present time. Agree to discharge patient. Job ID: [id number]
--- NOTE | 2018-05-30 11:31 | PDOC.PN ---
- Subjective Encounter Start Date: 05/30/18 Encounter Start Time: 11:29 Mr. Power was seen today in follow-up of ESRD. He does not have any complaints today. - Objective Resuscitation Status - Order Detail: 05/19/18 07:36 Resuscitation Status Routine Resuscitation Status: FULL: Full Resuscitation MAR Reviewed: Yes Vital Signs & Weight: Vital Signs (12 hours) Temp Pulse BP 05/30/18 08:16 73 160/71 H 05/30/18 08:15 73 160/70 H 05/30/18 08:00 98.0 F 66 Weight Admit Weight 165 lb Weight 150 lb 9.635 oz I&O: 05/29/18 05/30/18 05/31/18 06:59 06:59 06:59 Intake Total 350 1020 240 Output Total 0 Balance 350 1020 240 Result Diagrams: 05/28/18 13:38 05/28/18 13:38 Additional Labs: Accuchecks 05/30/18 05/29/18 05/29/18 04:26 19:40 16:39 POC Glucose 87 125 H 92 05/29/18 11:23 POC Glucose 131 H Phys Exam - Physical Examination HEENT: PERRLA Respiratory: no wheezing, no rales, no rhonchi, clear to auscultation bilateral Cardiovascular: RRR, no significant murmur, no rub Gastrointestinal: soft, non-tender, no distention, positive bowel sounds Musculoskeletal: no edema, pulses present Dx/Plan (1) ESRD (end stage renal disease) on dialysis Code(s): N18.6 - END STAGE RENAL DISEASE; Z99.2 - DEPENDENCE ON RENAL DIALYSIS Status: Acute Comment: with secondary hyperparathyroidism (2) DM2 (diabetes mellitus, type 2) Status: Chronic Qualifiers: Chronic kidney disease stage: on chronic dialysis (3) HTN (hypertension) Code(s): I10 - ESSENTIAL (PRIMARY) HYPERTENSION Status: Chronic Comment: on Amlodipine and Hydralazine - Plan * ESRD- stable tolerating hemodialysis * HTN- blood pressure is a bit elevated but acceptable * DM- blood glucose is stable * Stable for discharge home.
[2018-05-30 15:42] VITALS: BP 162/65; TEMP 97.3
--- NOTE | 2018-05-31 10:08 | DIS ---
DATE OF ADMISSION: 05/18/2018 DATE OF DISCHARGE: 05/30/2018 PRIMARY CARE PHYSICIAN: Through the [facility]. DISCHARGE DISPOSITION: Home. PRIMARY DIAGNOSES: 1. End-stage renal disease, on hemodialysis. 2. Hypertension. 3. Diabetes mellitus, type 2. DISCHARGE MEDICATIONS: Include; 1. Hydralazine 50 mg t.i.d. 2. Amlodipine 10 mg daily. 3. Calcitriol 0.25 mcg daily. 4. Renvela 800 mg t.i.d. PROCEDURES DONE DURING THE ADMISSION: The patient had a cuffed tunneled dialysis catheter placed as well as a peritoneal dialysis catheter placed as well and an AV fistula. CODE STATUS: Full code. ALLERGIES: NO KNOWN DRUG ALLERGIES. HOSPITAL COURSE: Mr. Power is a pleasant 62-year-old gentleman, who has a history of hypertension and diabetes mellitus. He also has a history of chronic kidney disease. He was sent over to the hospital due to worsening renal function and he had approached the need for hemodialysis and has approached end-stage renal disease. He was admitted and Nephrology was consulted as well as General Surgery. The patient had a temporary cuffed dialysis placed and dialysis was initiated. Also during the course of his admission, his blood pressure medications were adjusted. He was also placed on renal replacement medications including Renvela and calcitriol. He tolerated dialysis well. He also had a PD catheter placed as well as an AV fistula as he was contemplating, doing peritoneal dialysis and once outpatient arrangements were made, he was able to be discharged home and to follow up in the [facility] as well as Dr. Valdez as instructed and Dr. Dickey as well. Job ID: [id number]
== END 2018-05-30 15:34 | disposition home or self-care (01) | DRG 673 ==
LOC: ERS 13:56 → 2SW 17:49 → OBSVTOIN 17:49 → 2NO 21:35 → T4-B 05-20 15:25
PROVIDERS: ADMIT Emergency Medicine; ATTEND Emergency Medicine
PROC: 5A1D70Z Performance of Urinary Filtration, Intermittent, Less than 6 Hours Per Day (ICD-10-PCS; principal; 2018-05-20)
PROC: 031C0ZF Bypass Left Radial Artery to Lower Arm Vein, Open Approach (ICD-10-PCS; 2018-05-20)
PROC: 02PYX3Z Removal of Infusion Device from Great Vessel, External Approach (ICD-10-PCS; 2018-05-20)
PROC: 0JH63XZ Insertion of Tunneled Vascular Access Device into Chest Subcutaneous Tissue and Fascia, Percutaneous Approach (ICD-10-PCS; 2018-05-20)
PROC: 02HV33Z Insertion of Infusion Device into Superior Vena Cava, Percutaneous Approach (ICD-10-PCS; 2018-05-20)
PROC: 0WHG43Z Insertion of Infusion Device into Peritoneal Cavity, Percutaneous Endoscopic Approach (ICD-10-PCS; 2018-05-27)
DX: I12.0 Hypertensive chronic kidney disease with stage 5 chronic kidney disease or end stage renal disease (principal); N18.6 End stage renal disease; N25.81 Secondary hyperparathyroidism of renal origin; E87.2 Acidosis; E11.22 Type 2 diabetes mellitus with diabetic chronic kidney disease; E87.5 Hyperkalemia; E87.70 Fluid overload, unspecified; E83.39 Other disorders of phosphorus metabolism; Z99.2 Dependence on renal dialysis; Z91.15 Patient's noncompliance with renal dialysis; Z89.421 Acquired absence of other right toe(s)
CPT/HCPCS: 36415; 36416; 71045; 80048; 80053; 83036; 83970; 84100; 85025; 86480; 86580; 86704; 86706; 86803; 87340; 90935; 93005; 93970; C1752; C1769; G0257; G0365; J0670; J1642; J1644; J2001; J2405; J2704; J2720; J3010; J3490

== ENCOUNTER 2018-06-06 12:34 | Outpatient (CLI) | payer OTHER, SELFPAY ==
--- NOTE | 2018-06-06 15:37 | RAD ---
CHEST TWO VIEWS: INDICATIONS: Rule out TB. FINDINGS: There is mild cardiomegaly with mild pulmonary vascular congestion and small bilateral pleural effusi on. There is a dialysis catheter from the left IJ projecting into the right atrium. No suspicious p ulmonary lesion is identified. No pneumothorax is noted. IMPRESSION: 1. Findings suggesting volume overload or congestive heart failure. 2. No suspicious pulmonary lesion identified. 3. Dialysis catheter. POS: [facility]
== END 2018-06-06 12:35 | disposition home or self-care (01) ==
LOC: BICRAD 12:34
PROVIDERS: ATTEND Internal Medicine Nephrology
DX: Z03.89 Encounter for observation for other suspected diseases and conditions ruled out (principal); Z99.2 Dependence on renal dialysis
CPT/HCPCS: 71046

== ENCOUNTER 2018-12-01 23:45 | Emergency (ER) | payer MEDICARE ==
[2018-12-02] MEDS ORDERED: Lidocaine 1% (PF) 30 ML VIAL ONE
[2018-12-02] MEDS ORDERED: Lidocaine 1% w/Epinephrine 1:100K 20 ML VIAL ONE (00:09)
== END 2018-12-02 01:15 | disposition home or self-care (01) ==
LOC: ERS 23:45
DX: T82.838A Hemorrhage due to vascular prosthetic devices, implants and grafts, initial encounter (principal); I12.0 Hypertensive chronic kidney disease with stage 5 chronic kidney disease or end stage renal disease; N18.6 End stage renal disease; E11.22 Type 2 diabetes mellitus with diabetic chronic kidney disease; Z79.899 Other long term (current) drug therapy
CPT/HCPCS: 12001; J2001